=== PATIENT | female | born 1930 | race Caucasian/White ===

== ENCOUNTER 2017-09-28 08:30 | Inpatient (IN) | payer MEDICARE, OTHER ==
[~2017-09-28] VITALS: Ht 167.6 cm; Wt 93.0 kg
[~2017-09-28 08:30] MED LIST: AMLODIPINE BESYL5 MG PO; ASPIR 8181 MG PO; FAMOTIDINE20 MG PO; IRON PO; LOSARTAN POTAS100 MG PO; PLAVIX75 MG PO; Z.0.GLIPIZIDE10 MG PO; Z.0.LASIX20 MG PO; Z.0.LIPITOR20 MG PO; Z.0.METOPROLOL TART2 PO; Z.0.NEURONTIN100 MG PO; [UNRECOGNIZED DRUG - OTHER] PO
[2017-09-28 09:33] LABS: BASOPHILS # (AUTO) 0.1 (0.0-0.1); BASOPHILS % 0.7 % (0.0-1.0); EOSINOPHILS # (AUTO) 0.1 (0.0-0.4); EOSINOPHILS % 0.8 % (0.0-6.0); HEMATOCRIT 33.6 % (34.2-44.1); HEMOGLOBIN 10.8 g/dL (12.0-16.0); LYMPHOCYTES # (AUTO) 0.7 (1.0-3.2); LYMPHOCYTES % 8.3 % (18.0-39.1); MEAN CORPUSCULAR HEMOGLOBIN 29.9 pg (28-32); MEAN CORPUSCULAR HGB CONC 32.1 g/dL (31-35); MEAN CORPUSCULAR VOLUME 93.1 fL (81-99); MONOCYTES # (AUTO) 0.7 (0.2-0.8); MONOCYTES % 8.9 % (4.4-11.3); NEUTROPHILS # (AUTO) 6.7 (2.1-6.9); NEUTROPHILS % 80.9 % (38.7-80.0); PLATELET COUNT 258 x10e3/uL (140-360); RED BLOOD COUNT 3.61 x10e6/uL (3.6-5.1); RED CELL DISTRIBUTION WIDTH 14.8 % (11.7-14.4)
[2017-09-28 09:37] LABS: BILIRUBIN,URINE NEGATIVE (NEGATIVE); KETONES,URINE NEGATIVE (NEGATIVE); LEUKOCYTE ESTERASE ,URINE 2+ (NEGATIVE); NITRITE,URINE NEGATIVE (NEGATIVE); URINE UROBILINOGEN 0.2 mg/dL (0.2 - 1)
[2017-09-28 09:42] LABS: CLARITY,URINE SL CLOUDY (CLEAR); COLOR,URINE YELLOW (YELLOW); PROTEIN,URINE DIPSTICK 1+ (NEGATIVE)
[2017-09-28 09:54] LABS: INR 1.25; PROTHROMBIN TIME 14.8 seconds (11.9-14.5)
[2017-09-28 09:55] LABS: PARTIAL THROMBOPLASTIN TIME 38.5 seconds (23.8-35.5)
--- NOTE | 2017-09-28 10:02 | Diagnostic Imaging Report ---
PROCEDURE: Frontal and lateral views of the chest. COMPARISON: Portable chest 10/12/2011. INDICATIONS: SHORTNESS OF BREATH, PNEUMONIA SINCE JULY FINDINGS: Lines/tubes: None. Lungs: The lungs are well inflated and clear. There is no evidence of pneumonia or pulmonary edema. Pleura: Large right pleural effusion. No pneumothorax. Heart and mediastinum: The heart and the mediastinum are normal. Atherosclerotic calcifications. Bones: No acute bony abnormality. Median sternotomy wires. Degenerative changes of the thoracic spine. IMPRESSION: Large right pleural effusion. Dictated by: Carlos Middleton M.D. on 09/28/2017 at 10:02 Electronically approved by: Carlos Middleton M.D. on 09/28/2017 at 10:02
[2017-09-28 10:04] LABS: BACTERIA,URINE RARE /HPF; EPITHELIAL CELLS,URINE FEW /LPF; YEAST,URINE RARE
[2017-09-28 10:04] LABS: ALBUMIN 3.4 g/dL (3.5-5.0); ALBUMIN/GLOBULIN RATIO 0.9 (0.8-2.0); ANION GAP 19.1 mmol/L (8-16); POTASSIUM 4.1 mmol/L (3.5-5.1)
[2017-09-28 10:05] LABS: AMORPHOUS SEDIMENT,URINE RARE (FEW)
[2017-09-28 10:10] LABS: CREATINE KINASE MB 2.7 ng/mL (0-5.0)
[2017-09-28] MEDS ORDERED: ASPIRIN 81 MG CHEW TAB PO ONE (12:30)
[2017-09-28] MEDS ORDERED: SODIUM CHLORIDE FLUSH 10 ML SYR INJ PRN (12:30)
[2017-09-28] MEDS ORDERED: ONDANSETRON HCL INJ 2 MG/ML VIAL IV PRN (12:30)
--- OUTSIDE RECORDS SUMMARY | 2017-09-28 12:48 | XMS REPORT ---
Author Author [facility] Address Unknown Phone Unavailable Care Team Providers Care Record Filing Clerk Name Role Phone YAZMIN SILVERIO Unavailable Unavailable Problems This patient has no known problems. Allergies, Adverse Reactions, Alerts This patient has no known allergies or adverse reactions. Medications This patient has no known medications. Results Test Description Test Time Test Comments Text Results Atomic Results Result Comments CHEST 2 VIEWS [place] [address] Patient Name: BASSAM QUINN MR #: [id number] : 1930 Age/Sex: 87/F Req # : [id number] Adm Physician: Ordered by: YAZMIN SILVERIO MD Report #: [id number] Location: ER Room/Bed: Procedure: [id number] DX/CHEST 2 VIEWS Exam Date: 09/28/17 Exam Time: 0935 REPORT STATUS: Signed PROCEDURE: Frontal and lateral views of the chest. COMPARISON: Portable chest 10/12/2011. INDICATIONS: SHORTNESS OF BREATH, PNEUMONIA SINCE JULY FINDINGS: Lines/tubes: None. Lungs: The lungs are well inflated and clear. There is no evidence of pneumonia or pulmonary edema. Pleura: Large right pleural effusion. No pneumothorax. Heart and mediastinum: The heart and the mediastinum are normal. Atherosclerotic calcifications. Bones: No acute bony abnormality. Median sternotomy wires. Degenerative changes of the thoracic spine. IMPRESSION: Large right pleural effusion. Dictated by: Armida Russell M.D. on 09/28/2017 at 10:02 Electronically approved by: Armida Russell M.D. on 09/28/2017 at 10:02 Dictated By : ARMIDA RUSSELL MD 1002 Transcribed By: RENAN on 09/28/17 1002 COPY TO: YAZMIN SILVERIO MD
[2017-09-28] MEDS ORDERED: HYDRALAZINE HCL 20 MG/ML VIAL IV PRN (13:00)
[2017-09-28] MEDS ORDERED: FUROSEMIDE INJ 10 MG/ML 4 ML VIAL IV ONE (13:00)
[2017-09-28] MEDS ORDERED: DEXTROSE 50% SYRINGE 50 ML IV PRN (13:45)
[2017-09-28] MEDS ORDERED: HEPARIN SOD (PORCINE) 5,000 UNIT/ML VIAL IV ONE (13:45)
[2017-09-28 14:00] VITALS: BP 160/70
--- NOTE | 2017-09-28 14:32 | History and Physical ---
CHIEF COMPLAINT 1. Shortness of breath. 2. Leg edema. 3. Fatigue and weakness. HISTORY OF PRESENT ILLNESS: This is an 87-year-old female with a past medical history of congestive heart failure, atherosclerotic heart disease, diabetes, hypertension, recent pneumonia, was in her usual state of health until last few weeks patient started developing more leg swelling and increasing shortness of breath, no chest pain, no abdominal pain, no nausea, no vomiting. Patient is more fatigued and weak. No dizziness, no hemoptysis, no hematemesis, no melena. PAST MEDICAL HISTORY 1. Hypertension. 2. Hyperlipidemia. 3. Coronary artery disease. 4. Diabetes mellitus. 5. Congestive heart failure. PAST SURGICAL HISTORY 1. History of cholecystectomy. 2. Coronary artery bypass graft. 3. Vertebroplasty 2016. FAMILY HISTORY: No significant past family history. ALLERGIES: ALLERGIC TO PENICILLIN. SOCIAL HISTORY: Patient lives by herself, close by to doctor's house. Nonsmoker and no drinking alcohol. MEDICATION: List attached. REVIEW OF SYSTEMS CONSTITUTIONAL: Generalized fatigue and weakness. HEENT: No diplopia, no blurring of vision. CARDIOPULMONARY: No chest pain. Has shortness of breath and no cough. ALIMENTARY: No nausea, no vomiting, no diarrhea, no constipation. GENITOURINARY: No dysuria, no hematuria. MUSCULOSKELETAL: No joint pain. CENTRAL NERVOUS SYSTEM: No focal weakness, no seizures. PHYSICAL EXAMINATION GENERAL: An 87-year-old female who is alert, oriented x3. Mild respiratory distress. VITAL SIGNS: Temperature 97.7, pulse 59, respiratory rate 20, blood pressure 150/81. HEENT: Head atraumatic, normocephalic. Pupils bilaterally equally reactive to light. Extraocular muscles intact. Neck supple. Mild JVD. SKIN: No clubbing, no cyanosis. Tongue is dry. LUNGS: Decreased breath sounds in right lung and decreased breath sounds left base. HEART: S1 and S2. Regular rate and rhythm. No S3, no S4 or murmur. ABDOMEN: Soft, nontender. No guarding, no rigidity. EXTREMITIES: +3 pedal edema bilaterally. Peripheral pulse +1. CENTRAL NERVOUS SYSTEM: Grossly nonfocal. No calf tenderness. CHEST X-RAY: Large pleural effusion. LAB: Urine white count is 11-20. Increased PT/PTT. White count 8.3, hemoglobin 10.8, hematocrit 33.6, platelet is 258. Sodium 139, potassium 4.1, BUN 45, creatinine 2. Cardiac enzymes negative. BNP 626.3. LFT normal. ASSESSMENT 1. Exacerbation of congestive heart failure. 2. Large right pleural effusion, rule out from congestive heart failure, rule out parapneumonic effusion. 3. Diabetes mellitus. 4. Coronary artery disease, status post coronary artery bypass graft. 5. Recent pneumonia in July 2017. 6. Hypertension. 7. Anemia. 8. Worsening of renal insufficiency. PLAN 1. Lasix 40 IV b.i.d. Continue home medicine. Blood sugar checkup a.c. and at bedtime with sliding scale. Dr. Landon consult, pulmonary. 2. Cardiology consult, Dr. Brody. Renal consult, Dr. Garcia/Dr. Akbar. BMP in the morning. Will start heparin 5000 subcutaneous q.12. May be needing a venous Doppler of both legs to rule out DVT. Case discussed with the patient, told condition and prognosis. Job#: [id number] GELACIO
[2017-09-28 14:47] VITALS: BP 160/70
[2017-09-28] MEDS: INSULIN LISPRO 100 UNIT/1 ML 3ML VIAL SQ SCH ×2 (16:30→20:58)
[2017-09-28] MEDS ORDERED: HYDRALAZINE HCL 25 MG TAB PO SCH ×2 (17:00→21:00)
[2017-09-28] MEDS ORDERED: GABAPENTIN 100 MG CAP PO SCH (17:00)
[2017-09-28] MEDS ORDERED: GABAPENTIN 300 MG CAP PO SCH (17:00)
--- NOTE | 2017-09-28 17:16 | Consultation ---
DATE OF CONSULTATION: September 28, 2017 PULMONARY CONSULTATION REASON FOR THE CONSULT: Right-sided pleural effusion. CHIEF COMPLAINT: Shortness of breath. HISTORY OF PRESENT ILLNESS: Ms. Estes is an 87-year-old female who presented with the complaint of shortness of breath, leg edema, and redness of the leg going on for almost last week to week and a half. She is denying any complaints of chest pain, nausea, vomiting. She was admitted July at [facility] with the complaint of shortness of breath and was diagnosed with pneumonia. She was treated and was sent to rehab at [facility], where she was discharged late August. Since then she has felt that she has gained 15 to 20 pounds weight and has been progressively short of breath. I have reviewed the images of her chest x-ray, which is showing evidence of right-sided pleural effusion. She denies any nausea, vomiting or diarrhea. REVIEW OF SYSTEMS GENERAL: Denies any fever or chills. HEAD: Denies any head trauma. ENT: Denies any earache, nosebleed, throat pain. CVS: Denies any chest pain. RESPIRATORY: Shortness of breath. GI: Denies any nausea or vomiting. REMAINDER: The rest of the review of systems are negative except as in the HPI. PAST MEDICAL HISTORY 1. Hypertension. 2. Hyperlipidemia. 3. Coronary artery disease. 4. Diabetes. PAST SURGICAL HISTORY 1. Cholecystectomy. 2. CABG. 3. Vertebroplasty. FAMILY AND SOCIAL HISTORY: She smoked 20 years of her life. She quit 30 years ago. She denies any use of alcohol. She lives with her daughter. She was driving by herself and independent a month and a half ago before she was diagnosed with pneumonia. PHYSICAL EXAMINATION VITAL SIGNS: Temperature 98.3, pulse of 78, blood pressure 150/70, respiratory rate of 18, O2 sat 94% on 3 liters. SKIN: Warm and dry. GENERAL APPEARANCE: She is an elderly female in mild to moderate respiratory distress, following commands and responding to questions appropriately. HEENT: Head atraumatic, normocephalic. Pupils are reactive. NECK: Supple. No JVD. Thyroid not enlarged. CHEST: Reduced air entry on the right side, otherwise clear. HEART: S1/S2 audible. ABDOMEN: Soft, nontender, nondistended. EXTREMITIES: No clubbing, cyanosis. Patient has bilateral pedal edema up until mid calf and also has erythema bilaterally. NEUROLOGICALLY: Awake, alert, no focal neurological deficit. LABS: White count of 8.3, hemoglobin 10.8, platelets 258. Chemistry: Sodium 139, potassium 4.1, chloride 101, BUN 45, creatinine 2.0. Chest x-ray reviewed: Right-sided pleural effusion and increased congestion. ASSESSMENT: Ms. Estes is an 87-year-old female who presented with worsening shortness of breath, leg edema, 15-pound weight gain, history of heart failure, and ejection fraction verbally reported to me by her nurse was around 30% on the recent echo. Likely she is in fluid overload secondary to heart failure, and large right pleural effusion is due to congestive heart failure. However, recent history of pneumonia. Hence, need to rule out parapneumonic effusion. PLAN 1. Agree with IV Lasix as ordered by Dr. Cooper. 2. I will consult Interventional Radiology to do right-sided thoracentesis. Will send off LDH, protein and cell count. 3. She will be continued on antihypertensive medications. I will hold off on the antibiotics for now as patient does not have leukocytosis and has no fever. Unlikely that there is new pneumonia. However, will follow closely. If develops leukocytosis or fever, then may need antibiotics. Job#: [id number] GELACIO
[2017-09-28] MEDS ORDERED: LEVOFLOXACIN 500MG/D5W 100ML 100 ML IV SCH (17:30)
--- NOTE | 2017-09-28 18:40 | Consultation ---
DATE OF CONSULTATION: September 28, 2017 An 87-year-old female with underlying history of hypertension, type 2 diabetes presented with lower extremity cellulitis and swelling. She had pneumonia back in July, and then 2 weeks later she still had swelling of the lower extremity. Her kidney function were the same. She was referred to our office. Prior to that, she got admitted. HOME MEDICATIONS: Include aspirin, atorvastatin, Tegretol, furosemide, gabapentin, hydralazine, , potassium chloride, sertraline, sitagliptin, Januvia. ALLERGIES: PENICILLIN. SOCIAL HISTORY: Patient does not smoke or drink. PHYSICAL EXAMINATION GENERAL: She is currently laying supine in no apparent distress. Daughter at bedside. . CURRENT MEDICATIONS 1. Gabapentin 300 mg p.o. b.i.d. which has been stopped. 2. Lasix 40 mg IV q.12 h. 3. Plavix 75 mg daily. 4. Atorvastatin 20 mg daily. 5. Aspirin 81 mg once a day. 6. Hydralazine 25 mg p.o. q.12 h., which I am going to stop given the lower extremity edema. 7. Heparin subcutaneous. 8. Potassium chloride 20 mEq daily. 9. Sertraline. 10. Zoloft 25 mg daily. 11. Januvia 50 mg daily. SOCIAL HISTORY: Does not smoke or drink. Her workup here included a chest x-ray. Report shows evidence of large right pleural effusion. LABORATORY TESTS: White count 8.3, hemoglobin 10.8. Potassium 4.1, sodium 139, bicarbonate 33, BUN 25, creatinine 2. Liver function enzymes relatively okay. BNP is 636. PHYSICAL EXAMINATION GENERAL: Awake, alert and laying supine. No apparent distress. VITALS: Blood pressure of 121/63, pulse rate 53, afebrile. HEAD AND NECK: Trachea is midline. CHEST: Decreased air entry in both lower zones, right more than left. HEART: S1 and S2 audible. ABDOMEN: Otherwise soft and nontender. LOWER EXTREMITIES: Shows 1+ edema and evidence of cellulitis in both pretibial areas extending up to the ankles. IMPRESSION AND PLAN 1. Underlying possible cellulitis or venous congestion causing the redness: I will discontinue hydralazine as mentioned. Schedule potassium chloride. Continue with intravenous Lasix. He is allergic to penicillin. Will start empiric antibiotic in the form of Levaquin. 2. [id number] kidney failure: Will obtain kidney ultrasound. Renal workup ordered including . Must rule out nephrotic range proteinuria. Will obtain spot urine protein and creatinine ratio. 3. She has got a pleural effusion. 4. History of pancreatic nodular apparently. Discussed with Dr. Brody about lung nodules. Chest x-ray did not show any evidence of lung nodule at this point in time. Please see orders. Job#: [id number]
[2017-09-28] MEDS ORDERED: HYDROCODONE/APAP 5MG-325MG TAB PO PRN (18:45)
--- NOTE | 2017-09-28 18:47 | Consultation ---
DATE OF CONSULTATION: September 28, 2017 REASON FOR CONSULTATION: Multiple medical and cardiac problems. HISTORY: AY delightful 87-year-old lady who is known to me with longstanding history of coronary artery disease, status post myocardial infarction and coronary artery bypass surgery in 2002 and left ventricular dysfunction with ejection fraction in the low 40s, very advanced peripheral arterial vascular disease, status post several salvage procedures, hypertension, hypercholesterolemia, diabetes mellitus, end-organ damage, chronic renal insufficiency, history of pancreatic mass as well as renal mass and lung nodule followed by GI and medicine respectively. The patient was in her usual status of health. In July 2017, she was at [facility] for almost 16 days for "very nasty pneumonia". Since that time, she is not doing well. She continued to have shortness of breath and leg swelling. She was seen by Dr. Cooper in his office. She was having swelling of the lower extremities and she was given increasing dose of Lasix from 40 mg to 100 mg. Despite all of that, she continued to have worsening swelling of the lower extremities and now redness of both lower extremities as well as shortness of breath. . She came to the emergency room. Her chest x-ray showed right pleural effusion. Her BMP was at 626, and her BUN at 45 and creatinine of 2. The patient is admitted for further management. Cardiac consultation is obtained. Cardiac-enamorado patient prior to that illness in July, she was relatively symptom free. Her activities are limited by her arthritis rather than her peripheral arterial vascular disease. Her symptoms were at class II to early class III shortness of breath on exertion. The patient continued to have no chest pain. However, she is having with shortness of breath on exertion, leg edema and some orthopnea, no paroxysmal nocturnal dyspnea. Of interest, patient does have sick sinus syndrome. She is off beta malia or any AV corey agent. She refused pacemaker in the past, "I am doing well". Regarding her peripheral arterial vascular disease, she is status post right and left lower extremity salvage intervention [id number] and 2014. She is on antiplatelets and statin for that. Patient also does have history of chronic back pain with kyphoplasty, leg edema and swelling, usually chronic. The right leg is more swollen than the left. However, since her last admission with pneumonia the swelling of her lower extremities is worse. HOME MEDICATIONS: Include aspirin 81 mg a day. Plavix 75 mg a day. Lipitor 20 mg a day. Losartan 50 mg a day. Lasix 100 mg a day. Glipizide 10 mg twice a day. Januvia 50 mg a day. Gabapentin 300 mg twice a day. Pepcid. To preserve vision, multivitamins, iron, calcitrate. ALLERGIES: ASPIRIN. ALSO, SHE CANNOT TAKE ANY BETA MALIA OR AV COREY BLOCKING AGENT BECAUSE OF SICK SINUS SYNDROME. PAST MEDICAL HISTORY: 1. Peripheral arterial vascular disease, status post atherectomy of left and right lower extremities, salvage procedure on multiple occasions. 2. The patient is known to have single renal artery by CT angiogram in November 2012 with heavily calcified aorta. 3. History of chronic lung nodule over the right mid lung, since November 2012. 4. Pancreatic mass, , hiatal hernia followed by GI. 5. History of left arm arterial embolus in October 2011, status post thrombolysis. 6. Coronary artery disease, status post bypass surgery x3 by Dr. Vázquez in 2002. 7. Hypertension. 8. Hypercholesterolemia. 9. Diabetes mellitus. 10. Varicose vein. 11. Sick sinus syndrome. 12. Degenerative joint disease. 13. Chronic renal insufficiency. 14. Kyphoplasty. 15. Cholecystectomy and appendectomy. 16. Bilateral cataract surgery. 17. Achilles tendon surgery on both feet. 18. Right knee replacement in November 2011. 19. Left knee surgery. 20. Bilateral blepharoplasty of face in January 2014. SOCIAL HISTORY: She is a . She stopped smoking in 1991. Not an alcohol drinker. Retired afternoon nanny. FAMILY HISTORY: Mother at age 55, questionable cause of . Father at age 65 from complication of heart problem. Five siblings, 1 brother, 4 sisters, several of them from complications of diabetes mellitus, 1 sister from lung cancer and 1 sister of aneurysm, 1 sister of cardiac complications. Three healthy children, 2 daughters and 1 son. REVIEW OF SYSTEMS: GENERAL: Weakness, failure to thrive. No fever, no chills. HEENT: Decreased hearing, sinus allergy. PULMONARY AND CARDIAC: As per acute illness. Peripheral arterial vascular and leg edema as per acute illness summarized. GI: Poor appetite. No weight loss. No hematemesis and no melena. HEMATOLOGY: Easy bruising but no bleeding. LOWER EXTREMITIES: Chronic swelling, right greater than left and worsening swelling and evidence of redness of both lower extremities. MUSCULOSKELETAL: Back pain and knee pain, using a walker. NEUROLOGIC: Severe peripheral neuropathy, right leg is weaker than the left leg. PHYSICAL EXAMINATION VITALS: Vitals hiatus. Height of 5 feet, 7 inches, weight of 213 pounds. Blood pressure 140/70. Heart rate of 60. Respiratory rate of 18. Afebrile. HEENT: Decreased hearing is noted. NECK: No evidence of jugular venous pulsation. CHEST: Normal first and second heart sounds with aortic heart murmur. ABDOMEN: Soft. Liver edge is palpable. No abdominal bruit. EXTREMITIES: Chronic edema, right greater than left, with redness all the way almost to the knee. NEUROLOGIC: She is able to move extremities. Gait is not examined. LABORATORY DATA: BUN of 45, creatinine 2. Bicarb of 23. Sodium 139. Potassium 4.1. White blood cell count of 8.3, hemoglobin 10.8, hematocrit 34%, platelet count 258,000. Cardiac enzymes are normal. BNP of 626. EKG showing sinus bradycardia with 1st degree AV block, non-contracted PACs are noted. IMAGING: Chest x-ray showing right pleural effusion. IMPRESSION AND PLAN: 1. Admission with lower extremity edema, shortness of breath, large right pleural effusion. 2. Coronary artery disease, status post coronary artery bypass surgery with history of left ventricular dysfunction. 3. Aortic heart murmur. 4. Allergic carcinoma mm. 5. Severe peripheral arterial vascular disease. 6. Sick sinus syndrome. 7. History of lung nodule. 8. History of pancreatic mass. 9. Chronic venous insufficiency of the lower extremities with redness. 10. Chronic renal insufficiency. 11. Diabetes mellitus with complications. 12. Hypercholesterolemia. 13. Advanced severe degenerative joint disease. 14. Failure to thrive. Cardiac-enamorado recommendation will be observation, checking her venous Doppler, which was done. Checking an echocardiogram observing volume status. I agree with the thoracentesis. Patient needs to have also CT chest and CT abdomen. Differential diagnosis is discussed and explained to the patient and her 2 daughters. Job#: [id number]
[2017-09-28 18:48] LABS: CREATINE KINASE MB 2.9 ng/mL (0-5.0)
[2017-09-28 19:20] VITALS: BP 150/70
[2017-09-28 20:00] VITALS: BP 118/54
[2017-09-28] MEDS ORDERED: HEPARIN SOD (PORCINE) 5,000 UNIT/ML VIAL SC SCH (21:00)
[2017-09-28] MEDS: FUROSEMIDE INJ 10 MG/ML 4 ML VIAL IV SCH (21:02)
[2017-09-28] MEDS: LEVOFLOXACIN 500MG/D5W 100ML 100 ML IV SCH (21:02)
[2017-09-28] MEDS: GABAPENTIN 300 MG CAP PO SCH (21:02)
[2017-09-29] VITALS (7 sets, daily range): BP systolic 129–159; BP diastolic 55–65
[2017-09-29 06:42] LABS: BILIRUBIN,URINE NEGATIVE (NEGATIVE); CLARITY,URINE CLEAR (CLEAR); COLOR,URINE YELLOW (YELLOW); KETONES,URINE NEGATIVE (NEGATIVE); LEUKOCYTE ESTERASE ,URINE 2+ (NEGATIVE); NITRITE,URINE NEGATIVE (NEGATIVE); PROTEIN,URINE DIPSTICK NEGATIVE (NEGATIVE); URINE UROBILINOGEN 0.2 mg/dL (0.2 - 1)
[2017-09-29 07:07] LABS: EPITHELIAL CELLS,URINE MODERATE /LPF
[2017-09-29 07:09] LABS: BACTERIA,URINE FEW /HPF; WBC,URINE (MAN) >50 /HPF (0-5)
[2017-09-29 07:11] LABS: YEAST,URINE FEW
[2017-09-29 07:11] LABS: BASOPHILS # (AUTO) 0.1 (0.0-0.1); BASOPHILS % 0.7 % (0.0-1.0); EOSINOPHILS # (AUTO) 0.2 (0.0-0.4); HEMOGLOBIN 10.6 g/dL (12.0-16.0); LYMPHOCYTES # (AUTO) 0.8 (1.0-3.2); LYMPHOCYTES % 10.4 % (18.0-39.1); MEAN CORPUSCULAR HEMOGLOBIN 30.1 pg (28-32); MEAN CORPUSCULAR HGB CONC 32.1 g/dL (31-35); MEAN CORPUSCULAR VOLUME 93.8 fL (81-99); MONOCYTES # (AUTO) 0.7 (0.2-0.8); MONOCYTES % 9.8 % (4.4-11.3); NEUTROPHILS # (AUTO) 5.6 (2.1-6.9); NEUTROPHILS % 76.8 % (38.7-80.0); PLATELET COUNT 273 x10e3/uL (140-360); RED BLOOD COUNT 3.52 x10e6/uL (3.6-5.1); RED CELL DISTRIBUTION WIDTH 14.7 % (11.7-14.4)
[2017-09-29 07:14] LABS: CREATININE,URINE RANDOM 34.84 mg/dL (47-110)
[2017-09-29 07:21] LABS: TOTAL PROTEIN, URINE < 6.8 mg/dL (1-14)
[2017-09-29 07:30] LABS: ALBUMIN 3.2 g/dL (3.5-5.0); ALBUMIN/GLOBULIN RATIO 0.8 (0.8-2.0); ANION GAP 14.8 mmol/L (8-16); CALCIUM 8.8 mg/dL (8.4-10.2); CHOL/HDL RATIO 2.5 (3.0-3.6); CREATININE, SERUM 1.87 mg/dL (0.57-1.11); POTASSIUM 3.8 mmol/L (3.5-5.1)
[2017-09-29] MEDS: INSULIN LISPRO 100 UNIT/1 ML 3ML VIAL SQ SCH ×4 (07:30→21:20)
[2017-09-29 07:53] LABS: CREATINE KINASE MB 2.5 ng/mL (0-5.0); THYROID STIMULATING HORMONE 2.964 uIU/mL (0.350-4.940)
[2017-09-29] MEDS ORDERED: METOPROLOL TARTRATE 25 MG TAB PO SCH (09:00)
[2017-09-29] MEDS ORDERED: POTASSIUM CHLORIDE 20 MEQ TAB CR PO SCH (09:00)
[2017-09-29] MEDS: SERTRALINE HCL 50 MG TAB PO SCH (09:00)
[2017-09-29] MEDS: FUROSEMIDE INJ 10 MG/ML 4 ML VIAL IV SCH ×2 (09:00→21:10)
[2017-09-29] MEDS: ASPIRIN 81 MG CHEW TAB PO SCH (09:00)
[2017-09-29] MEDS: ATORVASTATIN 20 MG TAB PO SCH (09:00)
[2017-09-29] MEDS ORDERED: NIFEDIPINE CR 30 MG TAB PO SCH (09:00)
[2017-09-29] MEDS: SITAGLIPTIN 100 MG TAB PO SCH (09:00)
[2017-09-29] MEDS: GABAPENTIN 300 MG CAP PO SCH ×2 (09:00→21:10)
[2017-09-29] MEDS ORDERED: CLOPIDOGREL BISULFATE 75 MG TAB PO SCH (09:00)
[2017-09-29] MEDS: FAMOTIDINE 20 MG TAB PO SCH (09:00)
[2017-09-29] MEDS: CARBAMAZEPINE 200 MG TAB PO SCH (09:00)
--- NOTE | 2017-09-29 13:30 | Diagnostic Imaging Report ---
Ultrasound-guided Thoracentesis 09/29/2017 Pre-Procedure Diagnosis: Right pleural effusion; pneumonia Post-procedure Diagnosis:Right pleural effusion; pneumonia Innovation Manager: Juliana Anne Stock Broker Supervisor: None Sedation: None. 1% lidocaine local anesthesia. Estimate blood loss: <5 mL Blood administered: None Complications: None Implants/Grafts: None Specimen: 1100 mL serous fluid Procedure: Informed consent was obtained and the patient positioned in a sitting position in the ultrasound suite. A timeout was performed, followed by preliminary ultrasound of the chest. The back was prepped and draped in standard sterile fashion. Using real-time ultrasound guidance a 5-Macanese one-step centesis needle was advanced into the right thoracic cavity. An image was stored in the electronic medical record. 1100 mL serous fluid was aspirated. At the end of the procedure the catheter was removed and a sterile dressing applied. The patient tolerated the procedure well. No complications. Findings: Large volume right effusion. Impression: Successful ultrasound-guided right thoracentesis with removal of 1100 mL of fluid. Samples were submitted for evaluation if requested by the referring clinician. Plan: The patient is scheduled for post procedural CT chest. This report was generated with voice-recognition technology. Errors in bead trimmer can occur. Please interpret accordingly and contact a radiologist if there are any questions regarding the report. Signed by: Dr. Arnold Anne M.D. on 09/29/2017 1:26 PM
--- NOTE | 2017-09-29 13:30 | Diagnostic Imaging Report ---
Ultrasound-guided Thoracentesis 09/29/2017 Pre-Procedure Diagnosis: Right pleural effusion; pneumonia Post-procedure Diagnosis:Right pleural effusion; pneumonia Station Chief: Juliana Anne Strategic Marketing Manager: None Sedation: None. 1% lidocaine local anesthesia. Estimate blood loss: <5 mL Blood administered: None Complications: None Implants/Grafts: None Specimen: 1100 mL serous fluid Procedure: Informed consent was obtained and the patient positioned in a sitting position in the ultrasound suite. A timeout was performed, followed by preliminary ultrasound of the chest. The back was prepped and draped in standard sterile fashion. Using real-time ultrasound guidance a 5-South African one-step centesis needle was advanced into the right thoracic cavity. An image was stored in the electronic medical record. 1100 mL serous fluid was aspirated. At the end of the procedure the catheter was removed and a sterile dressing applied. The patient tolerated the procedure well. No complications. Findings: Large volume right effusion. Impression: Successful ultrasound-guided right thoracentesis with removal of 1100 mL of fluid. Samples were submitted for evaluation if requested by the referring clinician. Plan: The patient is scheduled for post procedural CT chest. This report was generated with voice-recognition technology. Errors in in home sales consultant can occur. Please interpret accordingly and contact a radiologist if there are any questions regarding the report. Signed by: Dr. Arnold Anne M.D. on 09/29/2017 1:26 PM
[2017-09-29 14:10] LABS: BODY FLUID APPEARANCE SL.CLOUDY; BODY FLUID COLOR YELLOW; BODY FLUID TYPE PLEURAL
[2017-09-29 14:12] LABS: RBC,BODY FLUID 3935 cells/uL; WBC,BODY FLUID 545 cells/uL
--- NOTE | 2017-09-29 14:13 | Diagnostic Imaging Report ---
CT chest, abdomen and pelvis, 09/29/2017 Clinical history: Acute exacerbation of COPD Comparison: None Technique: Routine protocol Volumetric CT chest and abdomen. No intravenous or enteric contrast. Multiplanar reformatted images. DLP: 1289.8 Findings: Lungs: Left upper lobe groundglass opacity with mild intralobular septal thickening. Mosaic attenuation at the lingula. Mild upper lobe predominant centrilobular emphysema. Bibasilar subsegmental atelectasis. Pulmonary nodules: Right upper lobe 1.2 x 1.2 cm spiculated nodule (image 23, series 3). Right upper lobe 0.9 x 0.7 cm groundglass nodule (image 30) Right upper lobe 4 mm (image 51) Pleura: Trace effusions bilaterally. Airways: Normal Lymph nodes: Normal Pulmonary arteries: Diameter 3.3 cm. Otherwise, normal. Thoracic aorta and great vessels: Extensive, diffuse aortic arteriosclerosis. Normal caliber. Heart and pericardium: Normal heart size. Extensive mitral annulus calcification. Severe coronary arterial sclerosis/atherosclerosis. Postoperative sequela of CABG. Calcification of the bypass graft noted. Intact midline sternotomy wires. Liver: Normal Gallbladder: Cholecystectomy Pancreas: Atrophic Spleen: Normal Adrenal glands: Normal Kidneys: Bilaterally atrophic. 11 mm partially exophytic left posterior cyst. Urinary bladder: Normal Uterus and adnexa: Normal Bowel: Normal caliber. Redundant sigmoid colon with diverticulosis. Small hiatal hernia. Peritoneum: Normal Subdiaphragmatic lymph nodes: Normal Vasculature: Extensive and diffuse arteriosclerosis with superimposed atherosclerosis. This extends throughout the abdominal aorta, celiac axis, SMA, common iliac arteries, internal iliac, external iliac and femoral arteries. Skeleton: Intact. Multilevel degenerative disc disease with bridging osteophytosis. Extensive sclerosis at L5 with preserved disc space height. Small volume of extra vertebral body methylmethacrylate associated with vertebroplasty. Soft tissues: Small fat-containing umbilical hernia. Impression: 1. 1.2 cm right upper lobe pulmonary nodule concerning for malignancy. 2. Other described pulmonary nodules are nonspecific, and require follow-up to determine clinical significance. 3. Left upper lobe peripheral groundglass opacity with interstitial thickening. Primary differential includes infection and nonspecific pneumonitis, and less likely lymphangitic carcinomatosis. Again, follow-up needed. 4. Extensive atherosclerosis/arteriosclerosis. 5. Emphysema. Prominent pulmonary arteries suggesting pulmonary hypertension. 6. Study sensitivity and specificity is limited by the lack of intravenous contrast. This report was generated with voice-recognition technology. Errors in feather curling machine operator can occur. Please interpret accordingly and contact a radiologist if there are any questions regarding the report. Signed by: Dr. Arnold Anne M.D. on 09/29/2017 2:09 PM
[2017-09-29 14:44] LABS: LYMPHOCYTES,BODY FLUID 86 %; MONO/MACROPHG,BODY FLUID 7 %; NEUTROPHILS,BODY FLUID 7 %
[2017-09-29] MEDS ORDERED: ACETAMINOPHEN 325 MG TAB ONE (17:42)
[2017-09-29] MEDS ORDERED: TRAMADOL HCL 50 MG TAB PO PRN (17:45)
[2017-09-29] MEDS: ACETAMINOPHEN 325 MG TAB PO PRN (17:45)
[2017-09-29] MEDS: LEVOFLOXACIN 500MG/D5W 100ML 100 ML IV SCH (21:10)
[2017-09-30] VITALS (8 sets, daily range): BP systolic 108–133; BP diastolic 51–60
[2017-09-30] MEDS: INSULIN LISPRO 100 UNIT/1 ML 3ML VIAL SQ SCH ×4 (07:30→21:01)
[2017-09-30 07:42] LABS: ANION GAP 17.9 mmol/L (8-16); CALCIUM 8.7 mg/dL (8.4-10.2); CREATININE, SERUM 1.76 mg/dL (0.57-1.11); POTASSIUM 3.9 mmol/L (3.5-5.1)
[2017-09-30] MEDS: ASPIRIN 81 MG CHEW TAB PO SCH (09:00)
[2017-09-30] MEDS: FUROSEMIDE INJ 10 MG/ML 4 ML VIAL IV SCH ×2 (09:00→21:02)
[2017-09-30] MEDS: SITAGLIPTIN 100 MG TAB PO SCH (09:00)
[2017-09-30] MEDS: ATORVASTATIN 20 MG TAB PO SCH (09:01)
[2017-09-30] MEDS: FAMOTIDINE 20 MG TAB PO SCH (09:01)
[2017-09-30] MEDS: GABAPENTIN 300 MG CAP PO SCH ×2 (09:01→21:01)
[2017-09-30] MEDS: SERTRALINE HCL 50 MG TAB PO SCH (09:01)
[2017-09-30] MEDS: CARBAMAZEPINE 200 MG TAB PO SCH (09:01)
[2017-09-30] MEDS: ACETAMINOPHEN 325 MG TAB PO PRN (21:01)
[2017-09-30] MEDS: LEVOFLOXACIN 250MG/D5W 50ML 50 ML IV SCH (21:01)
[2017-10-01] VITALS (8 sets, daily range): BP systolic 117–131; BP diastolic 53–90
[2017-10-01 06:59] LABS: BASOPHILS # (AUTO) 0.1 (0.0-0.1); BASOPHILS % 1.1 % (0.0-1.0); EOSINOPHILS # (AUTO) 0.3 (0.0-0.4); EOSINOPHILS % 4.2 % (0.0-6.0); HEMATOCRIT 31.6 % (34.2-44.1); LYMPHOCYTES # (AUTO) 0.9 (1.0-3.2); LYMPHOCYTES % 13.2 % (18.0-39.1); MEAN CORPUSCULAR HEMOGLOBIN 29.4 pg (28-32); MEAN CORPUSCULAR HGB CONC 31.6 g/dL (31-35); MEAN CORPUSCULAR VOLUME 92.9 fL (81-99); MONOCYTES # (AUTO) 0.8 (0.2-0.8); MONOCYTES % 12.5 % (4.4-11.3); NEUTROPHILS # (AUTO) 4.4 (2.1-6.9); NEUTROPHILS % 68.5 % (38.7-80.0); PLATELET COUNT 237 x10e3/uL (140-360); RED CELL DISTRIBUTION WIDTH 14.6 % (11.7-14.4)
[2017-10-01 07:27] LABS: ALBUMIN 2.9 g/dL (3.5-5.0); ALBUMIN/GLOBULIN RATIO 0.8 (0.8-2.0); ANION GAP 15.1 mmol/L (8-16); CALCIUM 8.4 mg/dL (8.4-10.2); CREATININE, SERUM 1.74 mg/dL (0.57-1.11); POTASSIUM 4.1 mmol/L (3.5-5.1)
[2017-10-01] MEDS: INSULIN LISPRO 100 UNIT/1 ML 3ML VIAL SQ SCH ×4 (07:30→21:11)
[2017-10-01] MEDS: GABAPENTIN 300 MG CAP PO SCH ×2 (08:24→21:09)
[2017-10-01] MEDS: FUROSEMIDE INJ 10 MG/ML 4 ML VIAL IV SCH ×2 (08:24→21:09)
[2017-10-01] MEDS: ASPIRIN 81 MG CHEW TAB PO SCH (08:24)
[2017-10-01] MEDS: SERTRALINE HCL 50 MG TAB PO SCH (08:24)
[2017-10-01] MEDS: FAMOTIDINE 20 MG TAB PO SCH ×2 (08:24→16:53)
[2017-10-01] MEDS: CARBAMAZEPINE 200 MG TAB PO SCH (08:24)
[2017-10-01] MEDS: SITAGLIPTIN 100 MG TAB PO SCH (08:24)
[2017-10-01] MEDS: ATORVASTATIN 20 MG TAB PO SCH (08:24)
[2017-10-01] MEDS ORDERED: METOLAZONE 5 MG TAB PO ONE (13:00)
[2017-10-01] MEDS ORDERED: FUROSEMIDE INJ 10 MG/ML 4 ML VIAL IV ONE (13:00)
[2017-10-01] MEDS ORDERED: ACETAMINOPHEN 325 MG TAB PO PRN (16:00)
[2017-10-01] MEDS: HEPARIN SOD (PORCINE) 5,000 UNIT/ML VIAL SC SCH (21:09)
[2017-10-01] MEDS: LEVOFLOXACIN 250MG/D5W 50ML 50 ML IV SCH (21:09)
[2017-10-02] VITALS (8 sets, daily range): BP systolic 116–141; BP diastolic 53–68
[2017-10-02 07:03] LABS: BASOPHILS # (AUTO) 0.1 (0.0-0.1); BASOPHILS % 0.8 % (0.0-1.0); EOSINOPHILS # (AUTO) 0.3 (0.0-0.4); EOSINOPHILS % 3.5 % (0.0-6.0); HEMATOCRIT 30.8 % (34.2-44.1); LYMPHOCYTES # (AUTO) 0.8 (1.0-3.2); LYMPHOCYTES % 10.6 % (18.0-39.1); MEAN CORPUSCULAR HEMOGLOBIN 29.9 pg (28-32); MEAN CORPUSCULAR HGB CONC 32.5 g/dL (31-35); MEAN CORPUSCULAR VOLUME 92.2 fL (81-99); MONOCYTES # (AUTO) 0.9 (0.2-0.8); MONOCYTES % 11.9 % (4.4-11.3); NEUTROPHILS # (AUTO) 5.4 (2.1-6.9); NEUTROPHILS % 72.9 % (38.7-80.0); PLATELET COUNT 236 x10e3/uL (140-360); RED BLOOD COUNT 3.34 x10e6/uL (3.6-5.1); RED CELL DISTRIBUTION WIDTH 14.3 % (11.7-14.4)
[2017-10-02] MEDS: INSULIN LISPRO 100 UNIT/1 ML 3ML VIAL SQ SCH ×4 (07:30→21:00)
[2017-10-02 07:38] LABS: ALBUMIN 2.9 g/dL (3.5-5.0); ALBUMIN/GLOBULIN RATIO 0.8 (0.8-2.0); ANION GAP 15.4 mmol/L (8-16); CALCIUM 8.5 mg/dL (8.4-10.2); CREATININE, SERUM 1.76 mg/dL (0.57-1.11); POTASSIUM 3.4 mmol/L (3.5-5.1)
[2017-10-02] MEDS: FUROSEMIDE INJ 10 MG/ML 4 ML VIAL IV SCH ×2 (08:36→21:00)
[2017-10-02] MEDS: SITAGLIPTIN 100 MG TAB PO SCH (08:36)
[2017-10-02] MEDS: ATORVASTATIN 20 MG TAB PO SCH (08:36)
[2017-10-02] MEDS: FAMOTIDINE 20 MG TAB PO SCH ×2 (08:36→16:31)
[2017-10-02] MEDS: ASPIRIN 81 MG CHEW TAB PO SCH (08:36)
[2017-10-02] MEDS: CARBAMAZEPINE 200 MG TAB PO SCH (08:36)
[2017-10-02] MEDS: GABAPENTIN 300 MG CAP PO SCH ×2 (08:36→21:00)
[2017-10-02] MEDS: SERTRALINE HCL 50 MG TAB PO SCH (08:36)
[2017-10-02] MEDS ORDERED: POTASSIUM CHLORIDE 10 MEQ TABCR PO ONE (09:00)
[2017-10-02] MEDS: HEPARIN SOD (PORCINE) 5,000 UNIT/ML VIAL SC SCH ×2 (09:06→21:01)
[2017-10-02] MEDS: MUPIROCIN 2% OINT 22 GM TUBE TOP SCH ×2 (10:18→16:31)
[2017-10-02] MEDS: POTASSIUM CHLORIDE 20 MEQ TAB CR PO SCH ×2 (12:54→16:31)
[2017-10-02] MEDS ORDERED: FUROSEMIDE INJ 10 MG/ML 4 ML VIAL IV ONE (13:00)
[2017-10-02] MEDS ORDERED: METOLAZONE 5 MG TAB PO ONE (13:00)
--- NOTE | 2017-10-02 13:19 | Progress Note ---
DATE: October 02, 2017 SUBJECTIVE: Swelling is subjectively better. Denies any dyspnea. Negative about 220 mL overnight. PHYSICAL EXAMINATION GENERAL: Sitting up in no distress. VITALS: Temperature 96.6, blood pressure 141/64, pulse 63. CHEST: Faint crackles at the bases. EXTREMITIES: Edema plus plus. SKIN: Redness in the legs. NEURO: Alert, appropriate. LABS: K 3.4, creatinine 1.76, BUN 50. This has been relatively stable. Estimated GFR 27 mL per minute. ASSESSMENT 1. Chronic kidney disease, stage 3. 2. Fluid overload. 3. Atrophic kidneys on CAT scan. PLAN: Continue IV diuresis. She still has some way to go. Will increase the dose of Lasix. Will follow along. Continue with serial chemistries. Job#: [id number]
[2017-10-02] MEDS: LEVOFLOXACIN 250MG/D5W 50ML 50 ML IV SCH (21:00)
[2017-10-03] VITALS: BP 120/61
[2017-10-03 05:17] VITALS: BP 137/58
[2017-10-03 07:06] LABS: BASOPHILS # (AUTO) 0.1 (0.0-0.1); BASOPHILS % 0.9 % (0.0-1.0); EOSINOPHILS # (AUTO) 0.3 (0.0-0.4); EOSINOPHILS % 4.1 % (0.0-6.0); HEMATOCRIT 31.3 % (34.2-44.1); LYMPHOCYTES # (AUTO) 0.6 (1.0-3.2); LYMPHOCYTES % 9.8 % (18.0-39.1); MEAN CORPUSCULAR HEMOGLOBIN 29.8 pg (28-32); MEAN CORPUSCULAR HGB CONC 31.9 g/dL (31-35); MEAN CORPUSCULAR VOLUME 93.2 fL (81-99); MONOCYTES # (AUTO) 0.8 (0.2-0.8); MONOCYTES % 12.1 % (4.4-11.3); NEUTROPHILS # (AUTO) 4.8 (2.1-6.9); NEUTROPHILS % 72.6 % (38.7-80.0); PLATELET COUNT 242 x10e3/uL (140-360); RED BLOOD COUNT 3.36 x10e6/uL (3.6-5.1); RED CELL DISTRIBUTION WIDTH 14.4 % (11.7-14.4)
[2017-10-03] MEDS: INSULIN LISPRO 100 UNIT/1 ML 3ML VIAL SQ SCH ×3 (07:30→17:07)
[2017-10-03 07:39] LABS: ALBUMIN/GLOBULIN RATIO 0.8 (0.8-2.0); CALCIUM 8.6 mg/dL (8.4-10.2); CREATININE, SERUM 1.87 mg/dL (0.57-1.11)
[2017-10-03] MEDS ORDERED: ACETAMINOPHEN 325 MG TAB PO PRN (08:15)
[2017-10-03 08:22] VITALS: BP 128/56
[2017-10-03 10:50] VITALS: BP 128/56
[2017-10-03] MEDS: ASPIRIN 81 MG CHEW TAB PO SCH (10:50)
[2017-10-03] MEDS: SITAGLIPTIN 100 MG TAB PO SCH (10:50)
[2017-10-03] MEDS: MUPIROCIN 2% OINT 22 GM TUBE TOP SCH ×2 (10:50→17:07)
[2017-10-03] MEDS: FAMOTIDINE 20 MG TAB PO SCH ×2 (10:50→17:07)
[2017-10-03] MEDS: HEPARIN SOD (PORCINE) 5,000 UNIT/ML VIAL SC SCH (10:50)
[2017-10-03] MEDS: SERTRALINE HCL 50 MG TAB PO SCH (10:50)
[2017-10-03] MEDS: GABAPENTIN 300 MG CAP PO SCH (10:50)
[2017-10-03] MEDS: CARBAMAZEPINE 200 MG TAB PO SCH (10:50)
[2017-10-03] MEDS: FUROSEMIDE INJ 10 MG/ML 4 ML VIAL IV SCH (10:50)
[2017-10-03 12:00] VITALS: BP 158/67
--- NOTE | 2017-10-03 12:58 | Diagnostic Imaging Report ---
PROCEDURE: X-RAY CHEST, TWO VIEWS COMPARISON: CT chest 09/29/17, Chest x-ray of 09/28/17. INDICATIONS: FOLLOW PLEURAL EFFUSION, THORACENTESIS FINDINGS: LUNGS: Diffuse hyperinflation. Eventration of right diaphragm is stable with mild overlying atelectasis. Airspace opacities in the upper lobes and a potential mass in the right upper lobe on CT are poorly visualized by x-ray. PLEURA: Mild blunting of the posterior costophrenic angles. Right pleural effusion is significantly smaller. No evidence of pneumothorax. HEART \T\ MEDIASTINUM: Stable cardiomegaly and postoperative changes. BONES \T\ SOFT TISSUES: No acute findings. CONCLUSION: 1. Small posterior pleural effusions. Stable eventration of the right diaphragm. No pneumothorax. 2. Stable cardiomegaly. No vascular congestion. Dictated by: Rhonda Murray M.D. on 10/03/2017 at 12:58 Electronically approved by: Rhonda Murray M.D. on 10/03/2017 at 12:58
[2017-10-03 16:00] VITALS: BP 140/60
[2017-10-03] MEDS ORDERED: FUROSEMIDE 40 MG TAB PO SCH (18:00)
[2017-10-03] MEDS ORDERED: ATORVASTATIN 20 MG TAB PO SCH (21:00)
== END 2017-10-03 18:02 | DRG 291 ==
LOC: ER 08:30 → ERHOLD 12:44 → MED/SURG 13:01
PROVIDERS: ADMIT Internal Medicine; ATTEND Internal Medicine
PROC: 0W993ZX Drainage of Right Pleural Cavity, Percutaneous Approach, Diagnostic (ICD-10-PCS; principal; 2017-09-29)
DX: I13.0 Hypertensive heart and chronic kidney disease with heart failure and stage 1 through stage 4 chronic kidney disease, or unspecified chronic kidney disease (principal); I50.23 Acute on chronic systolic (congestive) heart failure; N17.9 Acute kidney failure, unspecified; J90 Pleural effusion, not elsewhere classified; E11.51 Type 2 diabetes mellitus with diabetic peripheral angiopathy without gangrene; E11.22 Type 2 diabetes mellitus with diabetic chronic kidney disease; I49.5 Sick sinus syndrome; N18.6 End stage renal disease; L03.90 Cellulitis, unspecified; N18.3 Chronic kidney disease, stage 3 (moderate); I25.10 Atherosclerotic heart disease of native coronary artery without angina pectoris; I25.2 Old myocardial infarction; E78.00 Pure hypercholesterolemia, unspecified; I87.2 Venous insufficiency (chronic) (peripheral); M19.90 Unspecified osteoarthritis, unspecified site; R62.7 Adult failure to thrive; I35.8 Other nonrheumatic aortic valve disorders; Z87.891 Personal history of nicotine dependence; R60.0 Localized edema; Z79.4 Long term (current) use of insulin; N18.1 Chronic kidney disease, stage 1; Z95.1 Presence of aortocoronary bypass graft; Z99.2 Dependence on renal dialysis; Z68.33 Body mass index [BMI] 33.0-33.9, adult
CPT/HCPCS: 32555; 36415; 71046; 71250; 74176; 74470; 76770; 80048; 80053; 80061; 81001; 82270; 82378; 82550; 82553; 82570; 82948; 83615; 83880; 84156; 84157; 84443; 84484; 85025; 85610; 85730; 87070; 87086; 87205; 89051; 93005; 93306; 93970; 99284; J1644; J1940; J1956

== ENCOUNTER → 2017-11-14 | Outpatient (CLI) | payer MEDICARE, OTHER ==
--- NOTE | 2017-11-14 14:29 | Diagnostic Imaging Report ---
PROCEDURE: ULTRASOUND GUIDED THORACENTESIS COMPARISON: Chest 2 views 10/03/2017. CT chest 09/29/2017 INDICATIONS:Thoracentesis for pleural effusion FINDINGS: After informed consent was obtained, the patient was placed in the sitting position and preliminary ultrasound of the posterior chest identified a safe route into the right pleural effusion. The overlying skin was prepped and draped in usual sterile fashion. Lidocaine 1% was used for local anesthesia. Under ultrasound guidance, a centesis needle was advanced into the pleural fluid and 950 cc were aspirated. The patient tolerated the procedure well and there were no immediate post-procedural complications. A post-thoracentesis chest radiograph will be obtained. CONCLUSION: Uncomplicated ultrasound-guided right thoracentesis with removal of 950 cc. Dictated by: Carlos Middleton M.D. on 11/14/2017 at 14:30 Electronically approved by: Carlos Middleton M.D. on 11/14/2017 at 14:30
--- NOTE | 2017-11-14 14:57 | Diagnostic Imaging Report ---
PROCEDURE: A single AP view of the chest. COMPARISON: Chest 2 views 10/03/2017. INDICATIONS: POST THORACENTISIS FINDINGS: Lines/tubes: None. Lungs: Bibasilar atelectasis. No parenchymal mass. Small nodular densities are present in the upper lobes bilaterally. Pleura: Decrease in the right pleural effusion. No pneumothorax. Heart and mediastinum: The heart and the mediastinum are unremarkable. Atherosclerotic calcifications. Bones: Degenerative changes of the thoracic spine. Median sternotomy wires. IMPRESSION: No pneumothorax status post thoracentesis. Dictated by: Carlos Middleton M.D. on 11/14/2017 at 14:58 Electronically approved by: Carlos Middleton M.D. on 11/14/2017 at 14:58
== END ==
LOC: US 12:12
PROVIDERS: ATTEND Internal Medicine
DX: J90 Pleural effusion, not elsewhere classified (principal)
CPT/HCPCS: 32555; 71045

== ENCOUNTER 2017-12-01 16:28 | Inpatient (IN) | payer MEDICARE, OTHER ==
[~2017-12-01] VITALS: Ht 167.6 cm; Wt 93.4 kg
--- OUTSIDE RECORDS SUMMARY | 2017-12-01 16:32 | XMS REPORT | Continuity of Care Document ---
Author Author [facility] Organization [facility] Address [address] [place] [address] Phone Unavailable Care Team Providers Care Drilling Foreman Name Role Phone TORRIE JIMENEZ MD PCP Insurance Providers Guarantor Bassam Quinn Address [address] [phone] Email NONE Payer [facility] Policy Number [id number] Subscriber's Name Travis Quinn Relationship 01 Group Name RETIRED Effective Date 14 Payer Medicare A & B Policy Number [id number] Subscriber's Name Bassam Quinn Relationship 18 Self / Same As Patient Group Name RETIRED Effective Date 96 Advance Directives Directive Response Recorded Date/Time Does the patient have an advance directive? No 09/28/17 2:00pm If yes, is advance directive on file with [facility]? No 09/28/17 2:00pm If not on file with [facility] will patient provide a copy? No 09/28/17 2:00pm Do you have a Directive to Physician? Yes 09/28/17 9:33am Do you have a Medical Power of Material Damage Adjuster? Yes 09/28/17 9:33am Do you have an out of hospital Do Not Resuscitate Order? No 09/28/17 9:33am Do you have any special needs we should be aware of? No 09/28/17 9:33am Do you have a support person here with you today? Yes 09/28/17 9:33am Did patient receive Notice of Privacy Practices? Yes 09/28/17 9:33am Did patient receive patient rights and responsibilities? Yes 09/28/17 9:33am Problems No problem information available. Medications Current Home Medications Medication Dose Units Route Directions Days Qty Instructions Start Date Amlodipine Besylate 5 Mg Tablet 5 Mg Oral Daily Aspirin (Aspir 81) 81 Mg Tablet.dr 81 Mg Oral Daily Atorvastatin Calcium (Lipitor) 20 Mg Tablet 20 Mg Oral Daily Clopidogrel Bisulfate (Plavix) 75 Mg Tablet 75 Mg Oral Daily Famotidine 20 Mg Tab 20 Mg Oral Daily Furosemide (Lasix) 20 Mg Tablet 20 Mg Oral Every Other Day Gabapentin (Neurontin) 100 Mg Capsule 300 Mg Oral Twice A Day Glipizide 10 Mg Tablet 20 Mg Oral Twice A Day 2 PILLS BID Iron Mg Oral Daily Losartan Potassium 100 Mg Tablet 100 Mg Oral Daily Metoprolol Tartrate 25 Mg Tablet 12.5 Mg Oral Daily TAKE 1/2 PILL DAILY Past Home Medications Medication Directions Ordered Status Carbamazepine (Tegretol) 100 Mg Tab.chew, 100 Mg Oral Twice A Day Discontinued Social History Social History Problem Response Recorded Date/Time Onset Date Status Hx Psychiatric Problems No 09/28/2017 2:00pm Not Applicable Not Applicable Hx Alcohol Use No 09/28/2017 2:00pm Not Applicable Not Applicable Smoking Status Start Date Stop Date Never Smoker Hospital Discharge Instructions No hospital discharge instruction information available. Plan of Care Discharge Date 10/03/17 6:02pm Disposition TRANS TO OTHER [facility] Prescriptions See Medication Section Functional Status Query Response Date Recorded FUNCTIONAL STATUS . September 30, 2017 10:58am Assistive Devices Rolling Walker September 28, 2017 2:00pm Ambulation Ability Independent September 28, 2017 2:00pm Toileting Ability Independent October 02, 2017 6:02pm Allergies, Adverse Reactions, Alerts Allergen Type Severity Reaction Status Last Updated Penicillin Allergy Unknown Active 09/28/17 Immunizations No immunization information available. Vital Signs Acute Vital Signs Vital Response Date/Time Temperature (Fahrenheit) 96.7 degrees F (97.6 - 99.5) 10/03/2017 4:00pm Pulse Pulse Rate (adult) 80 bpm (60 - 90) 10/03/2017 4:00pm Respiratory Rate 21 bpm (12 - 24) 10/03/2017 4:00pm Blood Pressure 140/60 mm Hg 10/03/2017 4:00pm Height 5 ft 6 in 09/28/2017 2:48pm Weight 205.06 lb 10/02/2017 8:16am Body Mass Index 33.1 kg/m^2 10/02/2017 8:16am Results Laboratory Results Test Name Result Units Flags Reference Collection Date/Time Result Date/ Time Comments White Blood Count 6.55 x10e3/uL 4.8-10.8 10/03/2017 6:45am 10/03/2017 7 :11am Red Blood Count 3.36 x10e6/uL L 3.6-5.1 10/03/2017 6:45am 10/03/2017 7: 11am Hemoglobin 10.0 g/dL L 12.0-16.0 10/03/2017 6:45am 10/03/2017 7:11am Hematocrit 31.3 % L 34.2-44.1 10/03/2017 6:45am 10/03/2017 7:11am Mean Corpuscular Volume 93.2 fL 81-99 10/03/2017 6:45am 10/03/2017 7: 11am Mean Corpuscular Hemoglobin 29.8 pg 28-32 10/03/2017 6:45am 10/03/2017 7:11am Mean Corpuscular Hemoglobin Concent 31.9 g/dL 31-35 10/03/2017 6:45am 10/03/2017 7:11am Red Cell Distribution Width 14.4 % 11.7-14.4 10/03/2017 6:45am 2017 7:11am Platelet Count 242 x10e3/uL 140-360 10/03/2017 6:45am 10/03/2017 7: 11am Neutrophils (%) (Auto) 72.6 % 38.7-80.0 10/03/2017 6:45am 10/03/2017 7: 11am Lymphocytes (%) (Auto) 9.8 % L 18.0-39.1 10/03/2017 6:45am 10/03/2017 7: 11am Monocytes (%) (Auto) 12.1 % H 4.4-11.3 10/03/2017 6:4510/03/2017 7: 11am Eosinophils (%) (Auto) 4.1 % 0.0-6.0 10/03/2017 6:45am 10/03/2017 7: 11am Basophils (%) (Auto) 0.9 % 0.0-1.0 10/03/2017 6:4510/03/2017 7:11am IM GRANULOCYTES % 0.5 % 0.0-1.0 10/03/2017 6:4510/03/2017 7:11am Neutrophils # (Auto) 4.8 2.1-6.9 10/03/2017 6:4510/03/2017 7:11am Lymphocytes # (Auto) 0.6 L 1.0-3.2 10/03/2017 6:4510/03/2017 7: 11am Monocytes # (Auto) 0.8 0.2-0.8 10/03/2017 6:4510/03/2017 7:11am Eosinophils # (Auto) 0.3 0.0-0.4 10/03/2017 6:4510/03/2017 7:11am Basophils # (Auto) 0.1 0.0-0.1 10/03/2017 6:4510/03/2017 7:11am Absolute Immature Granulocyte (auto 0.03 x10e3/uL 0-0.1 10/03/2017 6: 4510/03/2017 7:11am Prothrombin Time 14.8 seconds H 11.9-14.5 09/28/2017 9:20am 09/28/2017 9 :57am Prothromb Time International Ratio 1.25 09/28/2017 9:20am 2017 9:57am Oral Anticoagulant Therapy INR Values: 1. Low Intensity Therapy 1.5 - 2.0 2. Moderate Intensity Therapy 2.0 - 3.0 3. High Intensity Therapy(1) 2.5 - 3.5 4. High Intensity Therapy(2) 3.0 - 4.0 5. Panic Value INR > 5.0 Activated Partial Thromboplast Time 38.5 seconds H 23.8-35.5 09/28/2017 9 :20am 09/28/2017 9:57am Urine Color YELLOW YELLOW 09/29/2017 6:30am 09/29/2017 6:50am Urine Clarity CLEAR CLEAR 09/29/2017 6:30am 09/29/2017 6:50am Urine Specific Cotter 1.015 1.010-1.025 09/29/2017 6:30am 2017 6:50am Urine pH 5 5 - 7 09/29/2017 6:30am 09/29/2017 6:50am Urine Leukocyte Esterase 2+ H NEGATIVE 09/29/2017 6:30am 09/29/2017 6: 50am Urine Nitrite NEGATIVE NEGATIVE 09/29/2017 6:30am 09/29/2017 6:50am Urine Protein NEGATIVE NEGATIVE 09/29/2017 6:30am 09/29/2017 6:50am Urine Glucose (UA) NEGATIVE NEGATIVE 09/29/2017 6:30am 09/29/2017 6: 50am Urine Ketones NEGATIVE NEGATIVE 09/29/2017 6:30am 09/29/2017 6:50am Urine Urobilinogen 0.2 mg/dL 0.2 - 1 09/29/2017 6:30am 09/29/2017 6: 50am Urine Bilirubin NEGATIVE NEGATIVE 09/29/2017 6:30am 09/29/2017 6: 50am Urine Blood TRACE H NEGATIVE 09/29/2017 6:30am 09/29/2017 6:50am Urine WBC >50 /HPF H 0-5 09/29/2017 6:30am 09/29/2017 7:11am Urine RBC 6-10 /HPF H 0-5 09/29/2017 6:30am 09/29/2017 7:11am Urine Bacteria FEW /HPF NONE 09/29/2017 6:30am 09/29/2017 7:11am Urine Epithelial Cells MODERATE /LPF NONE 09/29/2017 6:30am 09/29/2017 7:11am Urine Amorphous Sediment RARE FEW 09/28/2017 8:50am 09/28/2017 10: 05am Urine Yeast FEW H NONE 09/29/2017 6:30am 09/29/2017 7:11am Urine Random Total Protein < 6.8 mg/dL 1-14 09/29/2017 6:30am 2017 7:21am Urine Creatinine 34.84 mg/dL L 47-110 09/29/2017 6:30am 09/29/2017 7: 21am Urine Protein/Creatinine Ratio 0.00 09/29/2017 6:30am 09/29/2017 7: 21am Sodium Level 138 mmol/L 136-145 10/03/2017 6:45am 10/03/2017 7:41am Potassium Level 4.0 mmol/L 3.5-5.1 10/03/2017 6:45am 10/03/2017 7:41am Chloride Level 96 mmol/L L 98-107 10/03/2017 6:45am 10/03/2017 7:41am Carbon Dioxide Level 31 mmol/L H 22-29 10/03/2017 6:45am 10/03/2017 7: 41am Anion Gap 15.0 mmol/L 8-16 10/03/2017 6:45am 10/03/2017 7:41am Blood Urea Nitrogen 48 mg/dL H 7-26 10/03/2017 6:45am 10/03/2017 7:41am Creatinine 1.87 mg/dL H 0.57-1.11 10/03/2017 6:45am 10/03/2017 7:41am BUN/Creatinine Ratio 26 H 6-25 10/03/2017 6:45am 10/03/2017 7:41am Estimat Glomerular Filtration Rate 26 ML/MIN L 60- 10/03/2017 6:45am 06/2018 7:41am Ranges were taken from the National Kidney Disease Education Program and the National Kid[employer] Foundation literature. Reference ranges: 60 or greater: Normal 16-59 (for 3 consecutive months): Chronic kidney disease 15 or less: Kidney failure Glucose Level 138 mg/dL H 74-118 10/03/2017 6:45am 10/03/2017 7:41am Calcium Level 8.6 mg/dL 8.4-10.2 10/03/2017 6:45am 10/03/2017 7:41am Bedside Glucose 165 mg/dL H 70-120 10/03/2017 3:09pm 10/03/2017 3:47pm Meter ID: [id number] Total Bilirubin 0.6 mg/dL 0.2-1.2 10/03/2017 6:45am 10/03/2017 7:41am Aspartate Amino Transf (AST/SGOT) 15 IU/L 5-34 10/03/2017 6:45am 2017 7:41am Alanine Aminotransferase (ALT/SGPT) 10 IU/L 0-55 10/03/2017 6:45am 06/2018 7:41am Total Protein 6.6 g/dL 6.5-8.1 10/03/2017 6:45am 10/03/2017 7:41am Albumin 3.0 g/dL L 3.5-5.0 10/03/2017 6:45am 10/03/2017 7:41am Globulin 3.6 g/dL H 2.3-3.5 10/03/2017 6:45am 10/03/2017 7:41am Albumin/Globulin Ratio 0.8 0.8-2.0 10/03/2017 6:45am 10/03/2017 7: 41am Alkaline Phosphatase 87 IU/L 40-150 10/03/2017 6:45am 10/03/2017 7: 41am Triglycerides Level 62 MG/DL 0-149 09/29/2017 6:45am 09/29/2017 7:42am Cholesterol Level 108 MD/DL 0-199 09/29/2017 6:45am 09/29/2017 7:42am Less than 200 mg/dL Low Risk 201 - 239 mg/dL Borderline Risk 240 mg/dl and greater High Risk LDL Cholesterol 53 MG/DL L 60-130 09/29/2017 6:45am 09/29/2017 7:42am HDL Cholesterol 43 MG/DL 40-60 09/29/2017 6:45am 09/29/2017 7:42am Cholesterol/HDL Ratio 2.5 L 3.0-3.6 09/29/2017 6:45am 09/29/2017 7: 42am B-Type Natriuretic Peptide 626.3 pg/mL H 0-100 09/28/2017 9:20am 2017 10:03am Creatine Kinase 39 IU/L 29-168 09/29/2017 6:45am 09/29/2017 7:42am Creatine Kinase MB 2.50 ng/mL 0-5.0 09/29/2017 6:45am 09/29/2017 7: 56am Troponin I 0.024 ng/mL 0-0.300 09/29/2017 6:45am 09/29/2017 7:56am Thyroid Stimulating Hormone (TSH) 2.964 uIU/mL 0.350-4.940 09/29/2017 6: 45am 09/29/2017 7:56am Body Fluid Type PLEURAL 09/29/2017 12:57pm 09/29/2017 2:12pm Body Fluid Color YELLOW 09/29/2017 12:57pm 09/29/2017 2:12pm Body Fluid Appearance SL.CLOUDY 09/29/2017 12:57pm 09/29/2017 2: 12pm clotted. 1410 on 09/29/17 by Abigail Sherman Body Fluid WBC 545 cells/uL 09/29/2017 12:57pm 09/29/2017 2:12pm Body Fluid RBC 3935 cells/uL 09/29/2017 12:57pm 09/29/2017 2:12pm Body Fluid Neutrophils 7 % 09/29/2017 12:57pm 09/29/2017 2:44pm Body Fluid Lymphocytes 86 % 09/29/2017 12:57pm 09/29/2017 2:44pm Body Fluid Monocytes 7 % 09/29/2017 12:57pm 09/29/2017 2:44pm Body Fluid Total Cells Counted 100 09/29/2017 12:57pm 09/29/2017 2: 44pm Body Fluid Total Protein 3.2 g/dL 09/29/2017 12:57pm 09/29/2017 2: 37pm Body Fluid Lactate Dehydrogenase 107 IU/L 09/29/2017 12:57pm 2017 2:37pm No reference range has been established for this specimen type. Stool Occult Blood POSITIVE H NEGATIVE 10/01/2017 10:50am 10/01/2017 11:32am Procedures Procedure Status Date Provider(s) X-ray of chest, two views Active 09/28/17 YAZMIN SILVERIO MD Ultrasound, renal Active 09/28/17 LISA WILLETT Thoracentesis with ultrasound guidance Active 09/29/17 IRA REDDY MD Computed tomography of chest without contrast Active 09/29/[address] of abdomen and pelvis without contrast Active 09/29/17 LINK TOLENTINO MD X-ray of chest, two views Active 10/03/17 EDWAR TERESA MD Encounters Encounter Location Arrival/Admit Date Discharge/Depart Date Attending Provider Discharged Inpatient [facility] 09/28/17 12:44pm 6:02pm TORRIE JIMENEZ MD
[2017-12-01] MEDS ORDERED: ALBUTEROL SULF 0.083% NEB SOLN 3 ML NEB NEB STA (17:36)
[2017-12-01] MEDS ORDERED: IPRATROPIUM BROMIDE 0.02% 2.5 ML NEB NEB STA (17:36)
[2017-12-01 17:45] LABS: BASOPHILS # (AUTO) 0.1 (0.0-0.1); BASOPHILS % 0.7 % (0.0-1.0); EOSINOPHILS # (AUTO) 0.1 (0.0-0.4); EOSINOPHILS % 1.4 % (0.0-6.0); HEMATOCRIT 35.8 % (34.2-44.1); HEMOGLOBIN 11.6 g/dL (12.0-16.0); LYMPHOCYTES # (AUTO) 0.6 (1.0-3.2); LYMPHOCYTES % 7.8 % (18.0-39.1); MEAN CORPUSCULAR HEMOGLOBIN 27.4 pg (28-32); MEAN CORPUSCULAR HGB CONC 32.4 g/dL (31-35); MEAN CORPUSCULAR VOLUME 84.4 fL (81-99); MONOCYTES # (AUTO) 0.7 (0.2-0.8); MONOCYTES % 8.8 % (4.4-11.3); NEUTROPHILS # (AUTO) 6.5 (2.1-6.9); NEUTROPHILS % 80.9 % (38.7-80.0); PLATELET COUNT 293 x10e3/uL (140-360); RED BLOOD COUNT 4.24 x10e6/uL (3.6-5.1); RED CELL DISTRIBUTION WIDTH 15.8 % (11.7-14.4)
[2017-12-01 17:53] LABS: INR 1.23; PROTHROMBIN TIME 14.6 seconds (11.9-14.5)
[2017-12-01 17:54] LABS: PARTIAL THROMBOPLASTIN TIME 32.9 seconds (23.8-35.5)
[2017-12-01] MEDS ORDERED: FUROSEMIDE INJ 10 MG/ML 4 ML VIAL IV ONE (18:00)
[2017-12-01 18:03] LABS: ALBUMIN 3.2 g/dL (3.5-5.0); ALBUMIN/GLOBULIN RATIO 0.6 (0.8-2.0); ANION GAP 18.6 mmol/L (8-16); CALCIUM 9.5 mg/dL (8.4-10.2); CREATININE, SERUM 1.59 mg/dL (0.57-1.11); POTASSIUM 3.6 mmol/L (3.5-5.1)
--- NOTE | 2017-12-01 18:25 | Diagnostic Imaging Report ---
PROCEDURE: A single AP view of the chest. COMPARISON: Chest x-ray 11/14/2017. INDICATIONS: RESPIRATORY DISTRESS FINDINGS: Lines/tubes: Median sternotomy wires are present. Lungs: Right lung is hypoinflated with approximately 50% volume loss. Left lung is normally inflated. Diffuse interstitial opacities are seen. Right basilar atelectasis. Pleura: There is no pleural effusion or pneumothorax. Heart and mediastinum: The heart and the mediastinum are unremarkable. Significant atherosclerotic calcifications in the aorta. Bones: No acute bony abnormality. IMPRESSION: 1. Moderate to large right pleural effusion with associated right basilar atelectasis. 2. Interstitial edema. Dictated by: Conrado Gonzales M.D. on 12/01/2017 at 18:26 Electronically approved by: Conrado Gonzales M.D. on 12/01/2017 at 18:26
[2017-12-01 18:27] LABS: CREATINE KINASE MB 2.7 ng/mL (0-5.0); THYROID STIMULATING HORMONE 3.42 uIU/mL (0.350-4.940)
[2017-12-01 19:27] LABS: BILIRUBIN,URINE NEGATIVE (NEGATIVE); CLARITY,URINE CLEAR (CLEAR); COLOR,URINE YELLOW (YELLOW); KETONES,URINE NEGATIVE (NEGATIVE); LEUKOCYTE ESTERASE ,URINE NEGATIVE (NEGATIVE); NITRITE,URINE NEGATIVE (NEGATIVE); PROTEIN,URINE DIPSTICK TRACE (NEGATIVE); URINE UROBILINOGEN 0.2 mg/dL (0.2 - 1)
[2017-12-01] MEDS: ERTAPENEM 1GM/NS 100ML 100 ML IV SCH (19:34)
[2017-12-01 19:42] LABS: AMORPHOUS SEDIMENT,URINE FEW (FEW); BACTERIA,URINE FEW /HPF
[2017-12-01] MEDS ORDERED: PIPER-TAZ 3.375 GM 50 ML IV SCH (22:00)
--- NOTE | 2017-12-01 22:45 | Consultation ---
DATE OF CONSULTATION: December 01, 2017 The patient is in the emergency room, is being admitted. CHIEF COMPLAINT: Shortness of breath. The patient was in my office with shortness of breath and hypoxia and oxygen saturation 89% on 4 L. HISTORY OF PRESENT ILLNESS: Ms. Estes is an 87-year-old female known to me from previous admission and my clinic visit. The patient is a regular patient of Dr. Rubén Cooper and I am seeing her for pulmonary issues. She has history of congestive heart failure with ejection fraction 35% and she was recently admitted. She was recently admitted in September 2017 with right-sided pleural effusion. She had thoracentesis 3 to 4 times during the hospital stay at [facility] and [facility]. She felt better and was discharged. She has history of smoking and COPD as well. She was found to have a right lung mass which we discussed in detail during last visit and she declined the biopsy which is understandable for her age and she does not want to know if it is malignancy or not. Her 2 fluid analyses which were done at [facility] showed that the patient's pleural fluid is pseudoexudate versus transudate due to heart failure. In my office today, she was complaining of bilateral leg edema which was getting progressively worse and increasing shortness of breath and she is unable to lie flat. REVIEW OF SYSTEMS GENERAL: Denies any fever or chills. HEAD: Denies any head trauma. ENT: Denies any earache. CVS: Denies any chest pain. RESPIRATORY: Shortness of breath. GI: Denies any nausea, vomiting. Rest of the review systems is negative except as in HPI. PAST MEDICAL HISTORY: Hypertension, congestive heart failure, coronary artery disease, chronic kidney disease, hyperlipidemia. PAST SURGICAL HISTORY: Cholecystectomy, CABG, vertebroplasty. FAMILY AND SOCIAL HISTORY: Smoked 20 years of her life, quit 30 years ago. Denies any alcohol use. Lives with her daughter. PHYSICAL EXAMINATION VITAL SIGNS: Temperature 97.9, pulse of 76, blood pressure 143/61, respiratory rate of 18 to 20, O2 sat 96% on 2 L. O2 sat was 89% on 4 L in the office. HEENT: Head atraumatic, normocephalic. Pupils reactive. NECK: Supple. CHEST: Decreased air entry bilaterally. HEART: S1, S2 audible. ABDOMEN: Soft, nontender. EXTREMITIES: Bilateral pedal edema, right more than the left with erythema. LABS: Current labs are still pending. ASSESSMENT: Ms. Estes is an 87-year-old female. She likely has worsening congestive heart failure along with possible cellulitis and pleural infusion. She is hypoxic with hypoxic respiratory failure. I have discussed the case with Dr. Rubén Cooper and the ER physician. The patient will be sent to the emergency room for admission. PLAN: At this point, I have recommended Lasix and IV antibiotics till further labs are pending. She may need a CT chest to further evaluate her shortness of breath. Discussed with patient's daughter at bedside in detail as well. Further recommendations after reviewing the labs. Job#: [id number] TODD
[2017-12-01] MEDS ORDERED: GABAPENTIN 300 MG CAP PO STA (23:51)
[2017-12-02 02:29] LABS: CREATINE KINASE MB 2.8 ng/mL (0-5.0)
[2017-12-02 06:45] LABS: BASOPHILS # (AUTO) 0.1 (0.0-0.1); BASOPHILS % 0.9 % (0.0-1.0); EOSINOPHILS % 0.4 % (0.0-6.0); HEMATOCRIT 32.5 % (34.2-44.1); HEMOGLOBIN 10.5 g/dL (12.0-16.0); LYMPHOCYTES # (AUTO) 0.6 (1.0-3.2); LYMPHOCYTES % 8.2 % (18.0-39.1); MEAN CORPUSCULAR HEMOGLOBIN 27.9 pg (28-32); MEAN CORPUSCULAR HGB CONC 32.3 g/dL (31-35); MEAN CORPUSCULAR VOLUME 86.4 fL (81-99); MONOCYTES # (AUTO) 0.7 (0.2-0.8); MONOCYTES % 9.2 % (4.4-11.3); NEUTROPHILS # (AUTO) 6.2 (2.1-6.9); NEUTROPHILS % 80.9 % (38.7-80.0); PLATELET COUNT 276 x10e3/uL (140-360); RED BLOOD COUNT 3.76 x10e6/uL (3.6-5.1); RED CELL DISTRIBUTION WIDTH 15.9 % (11.7-14.4)
[2017-12-02 07:12] LABS: ALBUMIN/GLOBULIN RATIO 0.7 (0.8-2.0); ANION GAP 17.3 mmol/L (8-16); CALCIUM 8.8 mg/dL (8.4-10.2); CREATININE, SERUM 1.53 mg/dL (0.57-1.11); POTASSIUM 3.3 mmol/L (3.5-5.1)
[2017-12-02] MEDS ORDERED: FAMOTIDINE 20 MG TAB PO SCH (07:30)
[2017-12-02] MEDS ORDERED: GLIPIZIDE 5 MG TAB PO SCH (07:30)
[2017-12-02] MEDS ORDERED: DEXTROSE 50% SYRINGE 50 ML IV PRN (08:15)
--- NOTE | 2017-12-02 08:37 | History and Physical ---
CHIEF COMPLAINT 1. Increasing shortness of breath. 2. Bilateral leg swelling. 3. Leg pain. 4. Bilateral leg redness. HPI: This is an 87-year-old female with a past medical history of atherosclerotic heart disease, coronary artery disease, systolic congestive heart failure with low ejection fraction, lung nodule, diabetes, hypertension, was in her usual state of health until the patient was having increasing shortness of breath. The patient had an appointment with Dr. Landon in the office. The patient was found to have both severe bilateral leg edema and bilateral redness, cough. No chest pain. Feeling very weak and tired. Increasing shortness of breath on exertion. The patient was sent to [facility] emergency room. No abdominal pain. No nausea or vomiting. No hematemesis. No melena. No burning on urination or hematuria. No back ache. No diarrhea. No constipation. No seizures. No focal weakness. PAST MEDICAL HISTORY 1. Coronary artery disease. 2. Diabetes mellitus, type 2. 3. Congestive heart failure. 4. Hypertension. PAST SURGICAL HISTORY 1. History of cholecystectomy. 2. Vertebroplasty in 2016. 3. Coronary artery bypass graft. FAMILY HISTORY: No significant family history. ALLERGIES: PENICILLIN. SOCIAL HISTORY: The patient lives by herself close by to her daughter's house. HABITS: Denies smoking. Denies alcohol. Denies illicit drug use. MEDICATIONS: List attached. REVIEW OF SYSTEMS GENERAL: Generalized weak and fatigue. HEENT: No blurring of vision. No diplopia. CARDIOPULMONARY: Has shortness of breath and cough. No chest pain. ALIMENTARY: No vomiting. No diarrhea. No constipation. No nausea. GENITOURINARY: No dysuria. No hematuria. MUSCULOSKELETAL: Has some joint pain. PROFESSOR OF VIOLIN: No seizures. No focal weakness. PHYSICAL EXAMINATION GENERAL: An 87-year-old female who is alert and oriented times 3. Mild to moderate respiratory distress. VITALS: Temperature is 98.2, pulse 65, respiratory rate 18, blood pressure 149/88. HEENT: Head is atraumatic and normocephalic. Bilateral equal and reactive to light. Extraocular muscles intact. Mild conjunctival pallor. Sclerae normal. NECK: Supple. Mild JVD. No carotid bruits. No clubbing. No cyanosis. LUNGS: Decreased breath sounds at both bases. Rhonchi at both bases. HEART: S1 and S2. Regular rate and rhythm. No S3 or S4. No murmur. ABDOMEN: Soft and nontender. No guarding. No rigidity. EXTREMITIES: Plus 2 bilateral leg edema, right leg more swollen than left. Right calf tenderness. Peripheral pulses +1. PROFESSOR OF VIOLIN: Alert and oriented times 3. No gross focal weakness. Chest x-ray with moderate large pleural effusion with associated right basilar atelectasis and interstitial edema. White count 8.05, hemoglobin 11.6, hematocrit 35, and platelets are 293,000. Sodium 135, potassium 3.6, BUN 35, creatinine 1.59, glucose 162. BNP 940.6. LFTs normal. TSH normal. Urine is normal. ASSESSMENT 1. Exacerbation of systolic congestive heart failure. 2. Coronary artery disease. 3. Coronary artery bypass graft. 4. Leg edema: Rule out deep venous thrombosis. Rule out cellulitis of both legs. 5. Diabetes mellitus, type 2. 6. Lung nodule with pleural effusion. 7. Chronic kidney disease. 8. Hypertension. PLAN: IV Lasix 40 mg b.i.d. IV Invanz. Cardiology consult with Dr. Brody. ID consult with Dr. Vargas. Pulmonary consult with Dr. Landon. Renal consult with Dr. Akbar. BMP in the morning. Sliding scale a.c. and at night. Continue all other home medicines. Monitor I's and O's daily. Monitor weight. We are going to stop . Heparin 5000 subcutaneous q.12 h. Case discussed with the patient. Told of condition and prognosis. Job#: [id number] IN
[2017-12-02] MEDS ORDERED: NON-FORMULARY MEDICATION (Glipizide 20 MG) PO SCH (09:00)
[2017-12-02] MEDS ORDERED: GABAPENTIN 100 MG CAP PO SCH (09:00)
[2017-12-02] MEDS ORDERED: METOPROLOL TARTRATE 25 MG TAB PO SCH (09:00)
[2017-12-02] MEDS ORDERED: LOSARTAN POTASSIUM 100 MG TAB PO SCH (09:00)
[2017-12-02] MEDS ORDERED: AMLODIPINE BESYLATE 5 MG TAB PO SCH (09:00)
[2017-12-02] MEDS: FUROSEMIDE INJ 10 MG/ML 4 ML VIAL IV SCH ×2 (09:05→22:20)
[2017-12-02] MEDS: FAMOTIDINE 20 MG TAB PO SCH ×2 (09:05→20:41)
[2017-12-02] MEDS: ATORVASTATIN 20 MG TAB PO SCH (09:05)
[2017-12-02] MEDS: ASPIRIN 81 MG CHEW TAB PO SCH (09:05)
[2017-12-02] MEDS: GABAPENTIN 300 MG CAP PO SCH ×2 (09:05→20:41)
[2017-12-02] MEDS: CLOPIDOGREL BISULFATE 75 MG TAB PO SCH (09:05)
[2017-12-02 10:28] LABS: CREATINE KINASE MB 17.3 ng/mL (0-5.0)
[2017-12-02] MEDS: HEPARIN SOD (PORCINE) 5,000 UNIT/ML VIAL SC SCH ×2 (11:00→22:21)
[2017-12-02] MEDS ORDERED: POTASSIUM CHLORIDE 20 MEQ TAB CR PO STA (11:27)
[2017-12-02] MEDS ORDERED: FUROSEMIDE INJ 10 MG/ML 4 ML VIAL IV ONE ×2 (12:15→20:30)
[2017-12-02] MEDS: INSULIN LISPRO 100 UNIT/1 ML 3ML VIAL SQ SCH ×3 (12:30→22:21)
--- NOTE | 2017-12-02 12:57 | Consultation ---
DATE OF CONSULTATION: December 02, 2017 CARDIOLOGY CONSULTATION REASON FOR CONSULTATION: CHF. HISTORY OF PRESENT ILLNESS: This is an 87-year-old female well known to practice with history of coronary artery disease status post coronary artery bypass in 2002, chronic systolic heart failure with EF about 35% to 40% on most recent echo September 2017, advanced peripheral artery disease, hypertension, hypercholesterolemia, diabetes, chronic renal insufficiency, history of pancreatic mass. Also history of right upper lobe nodule suspicious of malignancy; however, patient refuses any workup for nodule. Patient presents to [facility] ER with apparently worsening symptoms of shortness of breath, orthopnea and lower extremity edema for the past week. Also complaining of a cough, wilkinson sputum. Denies any fevers or chills. BNP done showing a BNP of 900; so, Cardiology was consulted for CHF. Patient is seen in ER room 6, reports as mentioned above, cough, lower extremity edema, orthopnea, shortness of breath for the past week. Patient was given Lasix, has diuresed some and states it is being a little better. Chest x-ray done showing moderate to large right pleural effusion, of note, on the side of which right upper lobe nodules are at. Also, patient has a history of AFib with a slow ventricular rate, has been off beta van therapy given her slow ventricular rate. HOME MEDICATIONS: Include aspirin 81 mg daily, Plavix 75 mg daily, Lipitor 20 mg a day, losartan 50 mg a day, Lasix 100 mg a day, glipizide 10 mg twice a day, Januvia 50 mg daily, gabapentin 300 mg twice a day, and Pepcid 20 mg once a day. ALLERGIES: PENICILLIN. No beta blockers or AV jay blocking agents due to sick sinus syndrome. PAST MEDICAL HISTORY 1. CAD status post CABG. 2. Peripheral artery disease. 3. History of pancreatic mass. 4. History of right upper lobe nodule. 5. Hypertension. 6. Hypercholesterolemia. 7. Diabetes. 8. Varicose veins. 9. Sick sinus syndrome. 10. Chronic renal insufficiency. SURGICAL HISTORY 1. Kyphoplasty. 2. Cholecystectomy. 3. Appendectomy. 4. Bilateral cataract surgery. 5. Achilles tendon surgery. 6. Right knee replacement. 7. Left knee surgery. SOCIAL HISTORY: She is a . She stopped smoking in 1991. Denies any alcohol use. She is a retired [employer] administrator. FAMILY HISTORY: Mother at the age of 55, questionable cause of . Father at the age of 65, apparently a history of heart problems. Five siblings, 1 brother, 4 sisters. One of complications from diabetes. One from complications of lung cancer. One sister with aortic aneurysm. REVIEW OF SYSTEMS GENERAL: Positive for weakness, fatigue. Denies any fevers, chills. SKIN-ENAMORADO: Positive for bruising. Denies any rashes, sores. HEENT: Denies any nausea, vomiting, any headaches, any vision change, blurry vision, double vision. Denies any earaches, any rhinorrhea, epistaxis, any sore throat, bleeding gums. CARDIAC: Denies any chest pain, palpitations. Positive for dyspnea on exertion, positive for orthopnea, positive for lower extremity edema. RESPIRATORY: Positive for shortness of breath, positive for a productive cough wilkinson in nature. GI: No nausea, vomiting, diarrhea, constipation, any hematemesis, melena. URINARY: Positive for frequency, urgency. No dysuria or hematuria. VASCULAR: Positive for the lower extremity edema, varicose veins. MUSCULOSKELETAL: Positive for generalized joint pains. NEUROLOGIC: Denies any tingling, tremors, blackouts, seizures. HEMATOLOGY: Positive for bruising. ENDOCRINE: No heat or cold intolerance. No polyuria, polydipsia or polyphagia. PHYSICAL EXAMINATION VITAL SIGNS: Temperature 97.9, pulse 76, respiratory rate 19, blood pressure 142/61, pulse ox 95% on 4 liters nasal cannula. Height 66 inches, weight 205 pounds. GENERAL: Appears stated age, in no acute distress currently. SKIN-ENAMORADO: Positive for bruising, upper extremities. HEENT: Normocephalic. Pupils equal and reactive. Extraocular motor intact. Trachea midline. Oral mucosa pink. Positive JVD. No carotid bruits. HEART: Irregular rhythm. PMI 4th to 5th intercostal space. LUNG-ENAMORADO: Diminished in the right side. Does have a large pleural effusion on the right, crackles on the left. ABDOMEN: Soft, nontender, nondistended. No organomegaly noted. : Zaidi to bedside. MUSCULOSKELETAL: Generalized weakness. VASCULAR: +2 radial pulses bilaterally and +1 DP/PT pulses. NEUROLOGIC: Cranial nerves 2-12 seem intact. LABS: White count 7.6, hemoglobin 10.5, hematocrit 32, platelets 276. Chemistry: Sodium 137, potassium 3.3, chloride 99, bicarb 24, BUN 35, creatinine 1.53, glucose 154. Troponin 0.009, following next 0.021. TSH 3.4. IMAGING: Chest x-ray showing moderate to large right pleural effusion and also interstitial edema. IMPRESSION 1. Izypj-gl-dobvtmh systolic heart failure. 2. Large right pleural effusion. 3. History of right upper lobe nodules, patient refusing workup. 4. Coronary artery disease status post coronary artery bypass graft. 5. Hypertension. 6. Hypercholesterolemia. 7. Diabetes. 8. Chronic kidney disease. 9. Sick sinus syndrome. PLAN-ENAMORADO 1. From cardiac-[place], we will continue patient's heart failure therapy losartan, continue Lasix therapy, also continue patient's atorvastatin and aspirin therapy. 2. No beta van therapy due to patient's sick sinus syndrome. 3. Continue tele monitoring for now. 4. Further cardiac recommendations as clinical course progresses. Thank you very much for this consult. Dictated by: Bahman Chanel NP Job#: [id number] EV
[2017-12-02] MEDS ORDERED: GUAIFENESIN/CODEINE 10 ML CUP PO PRN (13:45)
--- NOTE | 2017-12-02 14:50 | Diagnostic Imaging Report ---
PROCEDURE: Frontal and lateral views of the chest. COMPARISON: Patients [facility], DX, CHEST SINGLE (PORTABLE), 12/01/2017, 18:06. INDICATIONS: CHF, SOB FINDINGS: See impression. IMPRESSION: 1. no interval change in moderate right pleural effusion and likely associated compressive atelectasis of the right lower lobe. Left lung is grossly clear. 2. Cardiac silhouette is obscured. Central pulmonary venous congestion and mild perihilar interstitial edema. Atherosclerotic calcification of the thoracic aorta.. 3. Generalized osteopenia. Degenerative changes in the thoracic spine. Jose Platt M.D. Dictated by: Jose Platt M.D. on 12/02/2017 at 14:51 Electronically approved by: Jose Platt M.D. on 12/02/2017 at 14:51
[2017-12-02 15:14] LABS: BASOPHILS # (AUTO) 0.1 (0.0-0.1); BASOPHILS % 0.6 % (0.0-1.0); EOSINOPHILS # (AUTO) 0.1 (0.0-0.4); EOSINOPHILS % 0.9 % (0.0-6.0); HEMATOCRIT 33.5 % (34.2-44.1); HEMOGLOBIN 10.8 g/dL (12.0-16.0); LYMPHOCYTES # (AUTO) 0.4 (1.0-3.2); LYMPHOCYTES % 4.9 % (18.0-39.1); MEAN CORPUSCULAR HEMOGLOBIN 27.8 pg (28-32); MEAN CORPUSCULAR HGB CONC 32.2 g/dL (31-35); MEAN CORPUSCULAR VOLUME 86.1 fL (81-99); MONOCYTES # (AUTO) 0.8 (0.2-0.8); NEUTROPHILS # (AUTO) 7.3 (2.1-6.9); NEUTROPHILS % 84.3 % (38.7-80.0); PLATELET COUNT 250 x10e3/uL (140-360); RED BLOOD COUNT 3.89 x10e6/uL (3.6-5.1); RED CELL DISTRIBUTION WIDTH 15.9 % (11.7-14.4)
[2017-12-02 15:28] LABS: ANION GAP 15.4 mmol/L (8-16); CREATININE, SERUM 1.48 mg/dL (0.57-1.11); POTASSIUM 3.4 mmol/L (3.5-5.1)
[2017-12-02] MEDS: ERTAPENEM 1GM/NS 100ML 100 ML IV SCH (19:20)
[2017-12-02] MEDS: LINEZOLID 600 MG/D5W 300ML 300 ML IV SCH (19:20)
[2017-12-02 21:05] VITALS: BP 143/68
[2017-12-02] MEDS ORDERED: SODIUM CHLORIDE 0.9% 250ML 250 ML ONE (21:32)
[2017-12-02] MEDS: CLINDAMYCIN 600MG/D5W 50ML 50 ML IV SCH (23:50)
[2017-12-03] VITALS (8 sets, daily range): BP systolic 121–141; BP diastolic 54–64
--- NOTE | 2017-12-03 01:05 | Consultation ---
DATE OF CONSULTATION: December 02, 2017 HISTORY OF PRESENT ILLNESS: This patient who is an 87-year-old female, who is a patient of Dr. Rubén Cooper. She has history of hypertension, congestive heart failure, coronary artery disease, chronic kidney disease, hyperlipidemia; and past surgical history of cholecystectomy, CABG, vertebroplasty. She used to smoke 20 years, quit 30 years ago. The patient comes into the hospital with shortness of breath. In the emergency room, she was found to be hypoxemic, O2 sat 89% while on 4 liters. She has been seen by cardiology. She was seen by critical care. Infectious disease was consulted to make recommendation in terms of antibiotic. This patient who has history of congestive heart failure as mentioned above. She was recently in September 2017 for right pleural effusion, thoracocentesis was done about 3 to 4 times, then she was transferred to [facility]. The patient was on antibiotic for pneumonia, and she was discharged home. The patient is coming back now with shortness of breath. Patient was admitted with worsening congestive heart failure, but it was also noted she has left lower extremity erythema and cellulitis, so infectious disease was consulted. Patient does not really provide meaningful information at the present time. She is coming as mentioned above with shortness of breath, bilateral lower extremities leg swelling as well as redness of the left lower extremity. PAST MEDICAL HISTORY: Coronary artery disease, diabetes mellitus, congestive heart failure, hypertension. PAST SURGICAL HISTORY: Cholecystectomy, vertebroplasty, and CABG. ALLERGIES: NKA. SOCIAL HISTORY: There is no smoking, drug abuse, alcohol abuse. She lives by herself, but close to her daughter. LABS: White count 8.6, hemoglobin of 10, hematocrit 33. Her sodium 135, potassium 3.4. Her creatinine 1.48. PHYSICAL EXAMINATION: GENERAL: She is currently alert, oriented, follows simple commands. VITAL SIGNS: Stable, but currently afebrile. HEENT: She does not appear icteric. NECK: Supple. CHEST: Few crackles bilaterally, coarse. HEART: S1 and S2. No murmur ABDOMEN: Soft. EXTREMITIES: Bilateral lower extremity, there is erythema and edema bilaterally noted, mainly on the left. IMPRESSION: Cellulitis in a patient who has been in hospital recently with chronic kidney disease, elderly. Agree with Invanz now, that will cover gram-negative, but will add linezolid or Zyvox 600 q.24h. before she has kidney function. Kidney function is compromised she has been in the hospital multiple times. I am concerned if I do vancomycin that may lead to acute renal failure. Will follow with you. Will see how she is going to do clinically over the next 24 hours. Thank you for asking me to see this patient. Job#: [id number]
--- NOTE | 2017-12-03 01:29 | Consultation ---
DATE OF CONSULTATION: December 02, 2017 LOCATION: Emergency room. The patient is known to me from prior admission. An 87-year-old female with underlying history of congestive heart failure, right-sided pleural effusion, prior thoracentesis, presented with fever, chills and cough. She also has shortness of breath. She is an existing patient of Dr. Brody. PAST MEDICAL HISTORY: Hyperlipidemia, type 2 diabetes, peripheral neuropathy, diabetic nephropathy, chronic kidney disease, stage 3, most likely, prior history of cholecystectomy, coronary artery bypass surgery. Apparently, history of depressed ejection fraction approximately 30%. Currently laying supine on oxygen. No apparent distress. ALLERGIES: PENICILLIN. SOCIAL HISTORY: Patient does not smoke or drink. FAMILY HISTORY: Significant for type 2 diabetes. CURRENT MEDICATIONS: Patient is on: 1. Albuterol and Atrovent nebulizer. 2. She is on ertapenem 1 g IV q.24 h. 3. She is on linezolid. 4. Zyvox IV q.12 h. 5. She is on atorvastatin 20 mg daily. 6. Aspirin once a day. 7. Amlodipine which I am going to stop once a day because of the side effect of lower extremity edema. 8. Plavix 75 mg once a day. 9. Famotidine. 10. Furosemide 40 mg IV q.12 h. 11. Gabapentin 300 mg p.o. b.i.d. 12. She is on glipizide 20 mg p.o. b.i.d. 13. Losartan 100 mg daily, which I am going to hold at this point in time. CURRENT LABS: Show white count of 8.6, hemoglobin 10.8. Sodium 135, potassium 3.4, bicarbonate 26 with a creatinine of 1.48. Last BNP level was 1180. Chest x-ray: Please see official report. Shows evidence of congestive heart failure, cardiomegaly with right-sided pleural effusion. PHYSICAL EXAMINATION GENERAL: Awake, alert and laying supine in no apparent distress. VITALS: Blood pressure of 114/85, pulse rate 44, afebrile, respiratory rate 20, oxygen saturation 94%. HEAD AND NECK: Cornea clear. Mucosa dry. LUNGS: Decreased air entry in right lower third with impaired percussion note. HEART: S1 and S2 audible. ABDOMEN: Otherwise soft and nontender. LOWER EXTREMITY EXAMINATION: Shows redness of skin and possible cellulitis of bilateral lower extremities. IMPRESSION AND PLAN 1. Underlying cellulitis. 2. Possible pneumonia. 3. Right-sided pleural effusion. 4. Hypertension. 5. Congestive heart failure. 6. Jxjak-ax-ooxirls kidney failure. Blood pressure noted. Discussed with the patient. Will discontinue some of the medications as I mentioned above in my notes. Will monitor the patient's kidney function and urine output with you. Her last kidney ultrasound, I do not see a report. I will try to obtain that study. Please see orders. Job#: [id number] CHRISTIANNE
[2017-12-03] MEDS: LINEZOLID 600 MG/D5W 300ML 300 ML IV SCH ×2 (05:35→16:48)
[2017-12-03 07:10] LABS: BASOPHILS % 0.5 % (0.0-1.0); EOSINOPHILS % 0.4 % (0.0-6.0); HEMATOCRIT 33.8 % (34.2-44.1); HEMOGLOBIN 10.7 g/dL (12.0-16.0); LYMPHOCYTES # (AUTO) 0.6 (1.0-3.2); LYMPHOCYTES % 7.6 % (18.0-39.1); MEAN CORPUSCULAR HEMOGLOBIN 27.5 pg (28-32); MEAN CORPUSCULAR HGB CONC 31.7 g/dL (31-35); MEAN CORPUSCULAR VOLUME 86.9 fL (81-99); MONOCYTES # (AUTO) 0.6 (0.2-0.8); MONOCYTES % 8.2 % (4.4-11.3); NEUTROPHILS # (AUTO) 6.2 (2.1-6.9); NEUTROPHILS % 82.6 % (38.7-80.0); PLATELET COUNT 270 x10e3/uL (140-360); RED BLOOD COUNT 3.89 x10e6/uL (3.6-5.1)
[2017-12-03] MEDS: INSULIN LISPRO 100 UNIT/1 ML 3ML VIAL SQ SCH ×4 (07:30→21:28)
[2017-12-03] MEDS: CLINDAMYCIN 600MG/D5W 50ML 50 ML IV SCH ×2 (07:37→14:00)
[2017-12-03 07:40] LABS: ALBUMIN 2.7 g/dL (3.5-5.0); ALBUMIN/GLOBULIN RATIO 0.6 (0.8-2.0); ANION GAP 16.6 mmol/L (8-16); CALCIUM 8.9 mg/dL (8.4-10.2); CREATININE, SERUM 1.48 mg/dL (0.57-1.11); POTASSIUM 3.6 mmol/L (3.5-5.1)
[2017-12-03] MEDS: ATORVASTATIN 20 MG TAB PO SCH (08:42)
[2017-12-03] MEDS: ASPIRIN 81 MG CHEW TAB PO SCH (08:42)
[2017-12-03] MEDS: FUROSEMIDE INJ 10 MG/ML 4 ML VIAL IV SCH ×2 (08:42→21:04)
[2017-12-03] MEDS: GABAPENTIN 300 MG CAP PO SCH ×2 (08:44→16:49)
[2017-12-03] MEDS: FAMOTIDINE 20 MG TAB PO SCH ×2 (08:44→16:49)
[2017-12-03] MEDS: CLOPIDOGREL BISULFATE 75 MG TAB PO SCH (08:44)
[2017-12-03] MEDS: HEPARIN SOD (PORCINE) 5,000 UNIT/ML VIAL SC SCH ×2 (08:48→21:27)
[2017-12-03 11:02] LABS: EOSINOPHILS % (MANUAL) 1 % (0-7); LYMPHOCYTES % (MANUAL) 3 % (19-48); MONOCYTES % (MANUAL) 8 % (3.4-9.0); NEUTROPHILS % (MANUAL) 88 % (40-74); PLATELET ESTIMATE ADEQUATE; PLATELET MORPHOLOGY COMMENT NORMAL; RBC MORPHOLOGY COMMENT NORMAL
--- NOTE | 2017-12-03 16:35 | Progress Note ---
DATE: December 03, 2017 Ms. Estes is currently on the medical floor. She states she is feeling better. No new complaints. She still has redness and swelling of bilateral lower extremities. Her shortness of breath is slightly better. REVIEW OF SYSTEMS: Otherwise is unremarkable. HEENT: Negative. PULMONARY: Negative. CARDIAC: Negative. : Negative. PHYSICAL EXAMINATION GENERAL: She is currently alert and oriented. Does not seem to be in acute distress. VITAL SIGNS: Stable. Currently, afebrile. HEENT: She is not anicteric. NECK: Supple. CHEST: Clear. HEART: S1 and S2. No murmurs. ABDOMEN: Soft. Bowel sounds positive. No tenderness. No hepatosplenomegaly. EXTREMITIES: Bilateral lower extremities with edema and erythema is faint from the ankle all the way to the knees. IMPRESSION 1. Cellulitis of bilateral lower extremities. 2. Congestive heart failure. 3. Fluid overload. 4. Anemia of chronic disease. 5. Diabetes. 6. Chronic kidney disease. She is currently on Invanz and linezolid. Will discontinue clindamycin. Continue to follow her clinically. Job#: [id number] CHRISTIANNE
[2017-12-03] MEDS: ERTAPENEM 1GM/NS 100ML 100 ML IV SCH (18:45)
[2017-12-03 20:44] LABS: ANION GAP 16.6 mmol/L (8-16); CREATININE, SERUM 1.62 mg/dL (0.57-1.11); POTASSIUM 3.6 mmol/L (3.5-5.1)
[2017-12-04] VITALS (9 sets, daily range): BP systolic 110–138; BP diastolic 52–65
[2017-12-04] MEDS: LINEZOLID 600 MG/D5W 300ML 300 ML IV SCH ×2 (04:30→16:23)
[2017-12-04 07:07] LABS: ANION GAP 17.5 mmol/L (8-16); CALCIUM 8.7 mg/dL (8.4-10.2); CREATININE, SERUM 1.74 mg/dL (0.57-1.11); PHOSPHORUS 4.1 MG/DL (2.3-4.7); POTASSIUM 3.5 mmol/L (3.5-5.1)
[2017-12-04] MEDS: INSULIN LISPRO 100 UNIT/1 ML 3ML VIAL SQ SCH ×4 (07:30→21:40)
[2017-12-04] MEDS: HEPARIN SOD (PORCINE) 5,000 UNIT/ML VIAL SC SCH ×2 (09:00→21:00)
[2017-12-04] MEDS: ATORVASTATIN 20 MG TAB PO SCH (09:00)
[2017-12-04] MEDS: FUROSEMIDE INJ 10 MG/ML 4 ML VIAL IV SCH ×2 (09:00→21:40)
[2017-12-04] MEDS: FAMOTIDINE 20 MG TAB PO SCH ×2 (09:00→16:24)
[2017-12-04] MEDS: GABAPENTIN 300 MG CAP PO SCH ×2 (09:00→16:24)
--- NOTE | 2017-12-04 10:35 | Diagnostic Imaging Report ---
EXAMINATION: CHEST SINGLE (PORTABLE) INDICATION: CHF COMPARISON: Chest x-ray 12/02/2017 FINDINGS: AP view TUBES and LINES: None. LUNGS: Lungs are well inflated. There is slight increase perihilar interstitial opacities, consistent with interstitial edema. PLEURA: Large right and tiny left pleural effusion HEART AND MEDIASTINUM: Cardiac size is moderately enlarged. There are atherosclerotic calcifications within the aorta. BONES AND SOFT TISSUES: No acute osseous lesion. Soft tissues are unremarkable. UPPER ABDOMEN: No free air under the diaphragm. IMPRESSION: 1. Large right and tiny left pleural effusion. 2. Slight increase in the interstitial edema. Signed by: Dr. Conrado Gonzales M.D. on 12/04/2017 10:32 AM
[2017-12-04] MEDS: ERTAPENEM 1GM/NS 100ML 100 ML IV SCH (18:45)
[2017-12-05] VITALS (8 sets, daily range): BP systolic 110–146; BP diastolic 56–62
[2017-12-05] MEDS: LINEZOLID 600 MG/D5W 300ML 300 ML IV SCH ×2 (04:44→16:20)
[2017-12-05 06:23] LABS: BASOPHILS # (AUTO) 0.1 (0.0-0.1); BASOPHILS % 0.5 % (0.0-1.0); EOSINOPHILS # (AUTO) 0.3 (0.0-0.4); EOSINOPHILS % 2.8 % (0.0-6.0); HEMATOCRIT 35.3 % (34.2-44.1); HEMOGLOBIN 11.5 g/dL (12.0-16.0); LYMPHOCYTES # (AUTO) 0.7 (1.0-3.2); LYMPHOCYTES % 7.1 % (18.0-39.1); MEAN CORPUSCULAR HEMOGLOBIN 27.8 pg (28-32); MEAN CORPUSCULAR HGB CONC 32.6 g/dL (31-35); MEAN CORPUSCULAR VOLUME 85.5 fL (81-99); MONOCYTES # (AUTO) 1.1 (0.2-0.8); NEUTROPHILS # (AUTO) 7.9 (2.1-6.9); NEUTROPHILS % 78.1 % (38.7-80.0); PLATELET COUNT 293 x10e3/uL (140-360); RED BLOOD COUNT 4.13 x10e6/uL (3.6-5.1); RED CELL DISTRIBUTION WIDTH 16.2 % (11.7-14.4)
[2017-12-05 06:51] LABS: ALBUMIN 2.5 g/dL (3.5-5.0); ALBUMIN/GLOBULIN RATIO 0.6 (0.8-2.0); ANION GAP 13.6 mmol/L (8-16); CALCIUM 8.7 mg/dL (8.4-10.2); CREATININE, SERUM 2.16 mg/dL (0.57-1.11); POTASSIUM 3.6 mmol/L (3.5-5.1)
[2017-12-05] MEDS: INSULIN LISPRO 100 UNIT/1 ML 3ML VIAL SQ SCH ×4 (07:30→21:07)
[2017-12-05] MEDS: FUROSEMIDE INJ 10 MG/ML 4 ML VIAL IV SCH (08:53)
[2017-12-05] MEDS: HEPARIN SOD (PORCINE) 5,000 UNIT/ML VIAL SC SCH ×2 (09:00→21:07)
--- NOTE | 2017-12-05 10:52 | Diagnostic Imaging Report ---
PROCEDURE: CHEST XRAY POST PROCEDURE COMPARISON: 12/04/2017. INDICATIONS: STATUS POST RIGHT THORACENTESIS FINDINGS: See conclusion CONCLUSION: Interval right thoracentesis with near-complete evacuation of the previously described moderate pleural effusion. Trace pleural effusion persists. No pneumothorax. Otherwise stable chest relative to 12/05/27. Dictated by: Bahman Franco M.D. on 12/05/2017 at 10:54 Electronically approved by: Bahman Franco M.D. on 12/05/2017 at 10:54
[2017-12-05] MEDS: ATORVASTATIN 20 MG TAB PO SCH (10:58)
[2017-12-05] MEDS: GABAPENTIN 300 MG CAP PO SCH ×2 (10:58→16:20)
[2017-12-05] MEDS: FAMOTIDINE 20 MG TAB PO SCH ×2 (10:58→16:20)
--- NOTE | 2017-12-05 11:00 | Diagnostic Imaging Report ---
PROCEDURE: ULTRASOUND GUIDED THORACENTESIS COMPARISON: Chest radiograph 12/04/2017. INDICATIONS:Pleural Effusion FINDINGS: After informed consent was obtained, the patient was placed in the left lateral decubitus position and preliminary ultrasound of the posterior chest identified a safe route into the right pleural effusion. The overlying skin was prepped and draped in usual sterile fashion. Lidocaine 1% was used for local anesthesia. Under continuous ultrasound guidance, a 5 Malian Yueh needle was advanced into the pleural fluid, the catheter was advanced off the needle and 1300 cc straw-colored fluid were aspirated. The patient tolerated the procedure well and there were no immediate post-procedural complications. A post-thoracentesis chest radiograph will be obtained. CONCLUSION: Uncomplicated ultrasound-guided right thoracentesis with removal of 1300 cc straw-colored fluid. Specimen was submitted for laboratory analysis as requested by the referring clinical team. Dictated by: Bahman Franco M.D. on 12/05/2017 at 11:03 Electronically approved by: Bahman Franco M.D. on 12/05/2017 at 11:03
[2017-12-05 11:16] LABS: BODY FLUID COLOR YELLOW; BODY FLUID TYPE PLEURAL
[2017-12-05 11:30] LABS: RBC,BODY FLUID 91 cells/uL; WBC,BODY FLUID 389 cells/uL
[2017-12-05 11:31] LABS: BODY FLUID APPEARANCE SL.CLOUDY
[2017-12-05 11:43] LABS: LYMPHOCYTES,BODY FLUID 76 %; MONO/MACROPHG,BODY FLUID 14 %; NEUTROPHILS,BODY FLUID 10 %
[2017-12-05] MEDS: ERTAPENEM 1GM/NS 100ML 100 ML IV SCH (19:06)
[2017-12-06] VITALS (7 sets, daily range): BP systolic 108–136; BP diastolic 50–60
[2017-12-06] MEDS: LINEZOLID 600 MG/D5W 300ML 300 ML IV SCH ×2 (04:35→16:25)
[2017-12-06 06:46] LABS: BASOPHILS % 0.4 % (0.0-1.0); EOSINOPHILS # (AUTO) 0.3 (0.0-0.4); EOSINOPHILS % 3.4 % (0.0-6.0); HEMATOCRIT 33.7 % (34.2-44.1); LYMPHOCYTES # (AUTO) 0.6 (1.0-3.2); MEAN CORPUSCULAR HEMOGLOBIN 28.2 pg (28-32); MEAN CORPUSCULAR HGB CONC 32.6 g/dL (31-35); MEAN CORPUSCULAR VOLUME 86.4 fL (81-99); MONOCYTES # (AUTO) 0.8 (0.2-0.8); MONOCYTES % 7.9 % (4.4-11.3); NEUTROPHILS # (AUTO) 7.8 (2.1-6.9); PLATELET COUNT 291 x10e3/uL (140-360); RED CELL DISTRIBUTION WIDTH 16.5 % (11.7-14.4)
[2017-12-06 07:14] LABS: ALBUMIN 2.4 g/dL (3.5-5.0); ALBUMIN/GLOBULIN RATIO 0.7 (0.8-2.0); ANION GAP 14.5 mmol/L (8-16); CALCIUM 8.4 mg/dL (8.4-10.2); CREATININE, SERUM 2.12 mg/dL (0.57-1.11); POTASSIUM 3.5 mmol/L (3.5-5.1)
[2017-12-06 07:49] LABS: EOSINOPHILS % (MANUAL) 2 % (0-7); LYMPHOCYTES % (MANUAL) 5 % (19-48); MONOCYTES % (MANUAL) 7 % (3.4-9.0); MYELOCYTES % (MANUAL) 1 % (0-0); NEUTROPHILS % (MANUAL) 85 % (40-74)
[2017-12-06 07:50] LABS: ANISOCYTOSIS SLIGHT; PLATELET ESTIMATE ADEQUATE; PLATELET MORPHOLOGY COMMENT NORMAL; RBC MORPHOLOGY COMMENT NORMAL
[2017-12-06] MEDS: HEPARIN SOD (PORCINE) 5,000 UNIT/ML VIAL SC SCH ×2 (08:19→21:09)
[2017-12-06] MEDS: GABAPENTIN 300 MG CAP PO SCH ×2 (08:19→17:07)
[2017-12-06] MEDS: ATORVASTATIN 20 MG TAB PO SCH (08:19)
[2017-12-06] MEDS: INSULIN LISPRO 100 UNIT/1 ML 3ML VIAL SQ SCH ×4 (08:19→21:10)
[2017-12-06] MEDS: FAMOTIDINE 20 MG TAB PO SCH ×2 (08:19→17:07)
[2017-12-06] MEDS: FUROSEMIDE INJ 10 MG/ML 4 ML VIAL IV SCH ×2 (14:10→22:10)
[2017-12-06] MEDS: ERTAPENEM 1GM/NS 100ML 100 ML IV SCH (19:01)
[2017-12-07] VITALS (8 sets, daily range): BP systolic 115–146; BP diastolic 50–78
[2017-12-07] MEDS: LINEZOLID 600 MG/D5W 300ML 300 ML IV SCH ×2 (04:30→16:41)
[2017-12-07] MEDS: FUROSEMIDE INJ 10 MG/ML 4 ML VIAL IV SCH (06:09)
[2017-12-07] MEDS: INSULIN LISPRO 100 UNIT/1 ML 3ML VIAL SQ SCH ×4 (07:30→20:57)
[2017-12-07 07:44] LABS: ALBUMIN 2.3 g/dL (3.5-5.0); ALBUMIN/GLOBULIN RATIO 0.6 (0.8-2.0); ANION GAP 14.2 mmol/L (8-16); CALCIUM 8.1 mg/dL (8.4-10.2); CREATININE, SERUM 1.97 mg/dL (0.57-1.11); POTASSIUM 3.2 mmol/L (3.5-5.1)
[2017-12-07] MEDS: FAMOTIDINE 20 MG TAB PO SCH ×2 (09:00→16:30)
[2017-12-07] MEDS: ATORVASTATIN 20 MG TAB PO SCH (09:00)
[2017-12-07] MEDS: GABAPENTIN 300 MG CAP PO SCH ×2 (09:00→16:30)
[2017-12-07] MEDS ORDERED: POTASSIUM CHLORIDE 20MEQ/100ML 200 ML IV ONE (09:00)
[2017-12-07] MEDS: ASPIRIN 81 MG CHEW TAB PO SCH (09:00)
[2017-12-07] MEDS: HEPARIN SOD (PORCINE) 5,000 UNIT/ML VIAL SC SCH ×2 (09:00→20:57)
[2017-12-07] MEDS: CLOPIDOGREL BISULFATE 75 MG TAB PO SCH (09:00)
[2017-12-07] MEDS ORDERED: NYSTATIN 100,000 UNITS/GM CRM 30GM TUBE TOP SCH (10:15)
[2017-12-07] MEDS ORDERED: NYSTATIN 100,000 UNITS/GM CRM 30GM TUBE TOP PRN (10:15)
[2017-12-07] MEDS: FUROSEMIDE 40 MG TAB PO SCH (16:30)
[2017-12-07] MEDS: ERTAPENEM 1GM/NS 100ML 100 ML IV SCH (18:42)
[2017-12-08] VITALS: BP 122/55
[2017-12-08 04:00] VITALS: BP 139/58
[2017-12-08] MEDS: LINEZOLID 600 MG/D5W 300ML 300 ML IV SCH (04:49)
[2017-12-08] MEDS: FUROSEMIDE 40 MG TAB PO SCH (05:51)
[2017-12-08 07:22] LABS: ALBUMIN 2.5 g/dL (3.5-5.0); ALBUMIN/GLOBULIN RATIO 0.6 (0.8-2.0); ANION GAP 14.8 mmol/L (8-16); CALCIUM 8.6 mg/dL (8.4-10.2); CREATININE, SERUM 1.99 mg/dL (0.57-1.11); MAGNESIUM 1.8 MG/DL (1.3-2.1); PHOSPHORUS 3.2 MG/DL (2.3-4.7); POTASSIUM 3.8 mmol/L (3.5-5.1)
[2017-12-08] MEDS: INSULIN LISPRO 100 UNIT/1 ML 3ML VIAL SQ SCH ×2 (07:30→11:35)
[2017-12-08 08:00] VITALS: BP 135/62
[2017-12-08 08:05] VITALS: BP 135/62
[2017-12-08] MEDS: ATORVASTATIN 20 MG TAB PO SCH (08:39)
[2017-12-08] MEDS: GABAPENTIN 300 MG CAP PO SCH (08:39)
[2017-12-08] MEDS: FAMOTIDINE 20 MG TAB PO SCH (08:39)
[2017-12-08] MEDS: CLOPIDOGREL BISULFATE 75 MG TAB PO SCH (08:39)
[2017-12-08] MEDS: ASPIRIN 81 MG CHEW TAB PO SCH (08:39)
[2017-12-08] MEDS ORDERED: FLUCONAZOLE 100 MG TAB PO SCH (09:00)
[2017-12-08] MEDS: HEPARIN SOD (PORCINE) 5,000 UNIT/ML VIAL SC SCH (09:00)
[2017-12-08 12:25] VITALS: BP 136/56
[2017-12-08] MEDS ORDERED: MAGNESIUM SULFATE 2GM/50ML 50 ML IV ONE (14:15)
== END 2017-12-08 16:08 | DRG 291 ==
LOC: ER 16:28 → ERHOLD 18:30 → MED/SURG 12-02 20:26
PROVIDERS: ADMIT Internal Medicine; ATTEND Internal Medicine
PROC: 0W993ZZ Drainage of Right Pleural Cavity, Percutaneous Approach (ICD-10-PCS; principal; 2017-12-05)
DX: I13.0 Hypertensive heart and chronic kidney disease with heart failure and stage 1 through stage 4 chronic kidney disease, or unspecified chronic kidney disease (principal); I50.23 Acute on chronic systolic (congestive) heart failure; J96.01 Acute respiratory failure with hypoxia; N17.9 Acute kidney failure, unspecified; L03.116 Cellulitis of left lower limb; J90 Pleural effusion, not elsewhere classified; I25.10 Atherosclerotic heart disease of native coronary artery without angina pectoris; E11.22 Type 2 diabetes mellitus with diabetic chronic kidney disease; E11.42 Type 2 diabetes mellitus with diabetic polyneuropathy; E11.21 Type 2 diabetes mellitus with diabetic nephropathy; N18.3 Chronic kidney disease, stage 3 (moderate); I49.5 Sick sinus syndrome; E78.00 Pure hypercholesterolemia, unspecified; D63.8 Anemia in other chronic diseases classified elsewhere; Z88.0 Allergy status to penicillin; J44.9 Chronic obstructive pulmonary disease, unspecified; R91.8 Other nonspecific abnormal finding of lung field; Z66 Do not resuscitate; I48.91 Unspecified atrial fibrillation; Z79.82 Long term (current) use of aspirin; Z79.02 Long term (current) use of antithrombotics/antiplatelets; Z95.1 Presence of aortocoronary bypass graft
CPT/HCPCS: 32555; 36415; 51700; 71045; 71046; 74470; 80048; 80053; 81001; 82550; 82553; 82948; 83605; 83615; 83735; 83880; 84100; 84157; 84443; 84484; 85025; 85610; 85730; 87040; 87086; 87400; 88112; 88305; 89051; 93005; 93970; 94640; 94660; 97139; 99284; J1644; J1940; J2020; J3480; J7050